=== PATIENT | female | born 1955 | race Caucasian/White ===

== ENCOUNTER 2017-11-04 02:10 | Inpatient (IN) | payer OTHER, MEDICARE ==
[~2017-11-04] VITALS: Ht 167.6 cm; Wt 61.6 kg
[2017-11-04] VITALS (10 sets, daily range): BP systolic 99–139; BP diastolic 56–68; PULSE 82–103; RESP 16–26; TEMP 96.7–97.9; O2SAT 94–100
[~2017-11-04 02:10] MED LIST: ACTE400I IV; DOCU1CAP39 PO; DOXY100T PO; FOLI1TAB PO; GABA400 PO; LEVO.05 PO; METH1INJ18 PO; PERC10TA27 PO; PRED5PAK PO; PROT40TA PO; VENL75 PO; ZOLP10TA3 PO
[2017-11-04] MEDS ORDERED: TOFA1TAB PO (02:44)
[2017-11-04] MEDS ORDERED: GABA800T PO (02:44)
[2017-11-04] MEDS ORDERED: LEVO50TA4 PO (02:44)
[2017-11-04] MEDS ORDERED: OXYC1TAB36 PO (02:44)
[2017-11-04] MEDS ORDERED: [UNRECOGNIZED DRUG - CODE] (02:44)
[2017-11-04] MEDS ORDERED: VENL75TA2 PO (02:44)
[2017-11-04] MEDS ORDERED: FOLI400T PO (02:44)
[2017-11-04] MEDS ORDERED: PRED5TAB PO (02:44)
[2017-11-04 03:04] LABS: AUTOMATED NEUTROPHIL # 4.1 TH/MM3 (1.8-7.7); BASOPHIL % 0.1 % (0.0-2.0); HEMATOCRIT 36.7 % (35.0-46.0); HEMOGLOBIN 12.3 GM/DL (11.6-15.3); LYMPH % 3.6 % (9.0-44.0); LYMPHOCYTE # 0.2 TH/MM3 (1.0-4.8); MEAN CELL VOLUME 105.3 FL (80.0-100.0); MEAN CORPUSCULAR HEMOGLOBIN 35.3 PG (27.0-34.0); MEAN CORPUSCULAR HGB CONC 33.5 % (32.0-36.0); MEAN PLATELET VOLUME 6.7 FL (7.0-11.0); MONO % 10.7 % (0.0-8.0); MONOCYTE # 0.5 TH/MM3 (0-0.9); NEUT % 85.6 % (16.0-70.0); PLATELET COUNT 391 TH/MM3 (150-450); RED BLOOD COUNT 3.49 MIL/MM3 (4.00-5.30); RED CELL DISTRIBUTION WIDTH 15.3 % (11.6-17.2); WHITE BLOOD COUNT 4.7 TH/MM3 (4.0-11.0)
--- NOTE | 2017-11-04 03:11 | RADRPT ---
EXAM DATE/TIME: 11/04/2017 02:43 [facility] COMPARISON: CHEST SINGLE AP, February 21, 2014, 4:41. INDICATIONS : Shortness of breath. MEDICAL HISTORY : None. SURGICAL HISTORY : None. ENCOUNTER: Initial ACUITY: 1 day PAIN SCORE: Non-responsive. LOCATION: Bilateral chest FINDINGS: There is a new consolidative infiltrate in the right lower lung without loss of delineation of the ri ght hemidiaphragm and obscuration of the right heart border, suggesting that this is a right middle l obe infiltrate. The left lung is clear. The heart is normal size. Bilateral shoulder arthroplasty. CONCLUSION: Right middle lobe consolidative infiltrate. Ambrose Richardson MD on November 04, 2017 at 3:08 Board Certified Radiologist. This report was verified electronically.
[2017-11-04 03:15] LABS: INTERNATIONAL NORMALIZED RATIO 1.1 RATIO; PROTHROMBIN TIME - PATIENT 11.1 SEC (9.8-11.6)
[2017-11-04 03:25] LABS: LACTIC ACID SEPSIS PROTOCOL 2.1 mmol/L (0.4-2.0)
[2017-11-04 03:33] LABS: ALBUMIN 3.1 GM/DL (3.4-5.0); AST (GOT) 58 U/L (15-37); BICARBONATE 18.3 MEQ/L (21.0-32.0); BLOOD UREA NITROGEN 39 MG/DL (7-18); CALCIUM 7.7 MG/DL (8.5-10.1); CHLORIDE 114 MEQ/L (98-107); CREATININE 2.45 MG/DL (0.50-1.00); GLOMERULAR FILTRATION RATE 20 ML/MIN (>89); GLUCOSE,RANDOM 128 MG/DL (74-106); SODIUM (NA) 141 MEQ/L (136-145)
[2017-11-04] MEDS ORDERED: VANCOMYCIN 1 GM/200 ML INJ 200 ML IV ONE (03:45)
[2017-11-04] MEDS ORDERED: PIPERACIL-TAZO 3.375 GM PREMIX 50 ML IV ONE (03:45)
[2017-11-04 03:47] LABS: ACETAMINOPHEN 4.7 MCG/ML (10.0-30.0); ALKALINE PHOSPHATASE 144 U/L (45-117); ALT (GPT) 25 U/L (10-53); TOTAL BILIRUBIN ADULT 0.3 MG/DL (0.2-1.0); TOTAL PROTEIN 6.2 GM/DL (6.4-8.2); TROPONIN I 0.03 NG/ML (0.02-0.05)
[2017-11-04] MEDS: SODIUM CHLORIDE 0.9% FLUSH 10 ML FLUSH IV FLUSH PRN ×2 (05:18→06:31)
[2017-11-04] MEDS ORDERED: SODIUM CHLOR 0.9% 1000 ML INJ 1,000 ML IV ONE (05:30)
[2017-11-04 06:14] LABS: BACTERIA, URINE OCC /hpf; BILIRUBIN, URINE NEG (NEG); BLOOD, URINE MOD (NEG); GLUCOSE,URINE NEG (NEG); HYALINE CAST, URINE 49 /lpf (RARE); KETONE, URINE TRACE mg/dL (NEG); MUCUS URINE FEW /lpf (OCC); NITRITE,URINE NEG (NEG); PH, URINE 5.5 (5.0-8.5); SQUAMOUS EPITHELIAL CELL URINE <1 /hpf (0-5); URINE COLOR YELLOW (YELLW/STRAW); URINE LEUKOCYTE ESTERASE NEG (NEG)
--- NOTE | 2017-11-04 06:40 | RADRPT ---
EXAM DATE/TIME: 11/04/2017 05:46 [facility] COMPARISON: No previous studies available for comparison. INDICATIONS : Shortness of breath. Evaluate for possible mass. RADIATION DOSE: 7.27 CTDIvol (mGy) MEDICAL HISTORY : Lupus. Renal failure. SURGICAL HISTORY : Bilateral shoulder replacments. ENCOUNTER: Initial ACUITY: 1 day PAIN SCALE: Non-responsive LOCATION: chest TECHNIQUE: Volumetric scanning of the chest was performed. Using automated exposure control and adjustment of t he mA and/or kV according to patient size, radiation dose was kept as low as reasonably achievable to obtain optimal diagnostic quality images. DICOM format image data is available electronically for r eview and comparison. Follow-up recommendations for detected pulmonary nodules are based at a minimum on nodule size and pa tient risk factors according to Fleischner Society Guidelines. FINDINGS: LUNGS: There is dense consolidation involving the entire right lower lobe without air bronchograms. There i s truncation of the lower lobe bronchus at its origin. Consolidation in the medial segment of the ri ght middle lobe with multiple air bronchograms. Patchy infiltrates in the left lower lung without ai r bronchograms. PLEURAE: There is no pleural thickening or pleural effusion. MEDIASTINUM: The heart and great vessels demonstrate no acute abnormality. There is no mediastinal or hilar lymph adenopathy. Coronary artery calcifications. AXILLAE: Within normal limits. No lymphadenopathy. Bilateral breast implants. MUSCULOSKELETAL: Within normal limits for patient age. MISCELLANEOUS: The visualized upper abdominal organs demonstrate no acute abnormality. CONCLUSION: 1. Consolidation of the entire right lower lobe with nonvisualization of the lower lobe bronchus at i ts origin suggesting an obstructing central lesion. 2. Segmental consolidation in the right middle lobe and patchy areas of infiltrate in the left lower lobe. 3. No evidence of mediastinal adenopathy. Ambrose Richardson MD on November 04, 2017 at 6:29 Board Certified Radiologist. This report was verified electronically.
--- NOTE | 2017-11-04 06:41 | RADRPT ---
EXAM DATE/TIME: 11/04/2017 05:49 [facility] COMPARISON: No previous studies available for comparison. INDICATIONS : Altered mental status. RADIATION DOSE: 56.35 CTDIvol (mGy) MEDICAL HISTORY : Lupus. Renal failure. SURGICAL HISTORY : None. ENCOUNTER: Initial ACUITY: 1 day PAIN SCALE: Non-responsive LOCATION: cranial TECHNIQUE: Multiple contiguous axial images were obtained of the head. Using automated exposure control and adj ustment of the mA and/or kV according to patient size, radiation dose was kept as low as reasonably a chievable to obtain optimal diagnostic quality images. DICOM format image data is available electro nically for review and comparison. FINDINGS: CEREBRUM: The ventricles are normal for age. No evidence of midline shift, mass lesion, hemorrhage or acute in farction. No extra-axial fluid collections are seen. POSTERIOR FOSSA: The cerebellum and brainstem are intact. The 4th ventricle is midline. The cerebellopontine angle i s unremarkable. EXTRACRANIAL: Soft tissue density in the inferolateral right maxillary sinus measuring 2 cm with smooth margins. T he visualized portion of the orbits is intact. SKULL: The calvaria is intact. No evidence of skull fracture. CONCLUSION: 1. No acute findings in the brain on this noncontrast study. 2. Right maxillary sinus disease. Ambrose Richardson MD on November 04, 2017 at 6:39 Board Certified Radiologist. This report was verified electronically.
--- NOTE | 2017-11-04 06:42 | PD ---
HPI . Altered mental status Chief Complaint: OD/ Ingestion Time Seen by Provider: 02:29 Travel History International Travel<30 days: No Contact w/Intl Traveler<30days: No Traveled to known affect area: No History of Present Illness HPI 62-year-old female with a known history of recurrent back injuries, rheumatoid arthritis, lupus, on opiate pain medications at home, presents via EMS with report of patient having shallow respirations at the house, patient's significant other called police/EMS. Narcan administered in the field with patient arousing becoming awake and alert. Patient presents answering questions appropriately awake and alert, unaware of her potential overdose. Patient was noted to have tachypnea and rhonchi lung car[place]allo right worse than left by EMS en route. Patient is an unreliable historian [facility] Past Medical History Narrative Medical Past medical history reviewed Arthritis: Yes (rheumatoid arthritis severe ) Autoimmune Disease: Yes Blood Disorders: Yes (bleed/bruise from prednisone) Anxiety: Yes (anxiety) Depression: Yes Cancer: No Cardiovascular Problems: No Diabetes: No Diminished Hearing: No Endocrine: Yes Gout: Yes Genitourinary: Yes Immune Disorder: Yes (LUPUS RA, avscular necrosis, pandeculitis ) Implanted Vascular Access Dvce: Yes Musculoskeletal: Yes (CHRONIC BACK PAIN , OSTEOPOROSIS) Neurologic: Yes Psychiatric: Yes Reproductive: No Respiratory: No Immunizations Current: Yes Migraines: Yes (rare) Renal Failure: Yes (nodules on kidney - benign) Thyroid Disease: Yes (hypothyroid ) Menopausal: Yes Past Surgical History Abdominal Surgery: Yes (gallbladder '89) Cholecystectomy: Yes (87) Eye Surgery: Yes (lasix vision) Gynecologic Surgery: No Joint Replacement: Yes (bilateral shoulders x 2, femur plates screws ) Pacemaker: No Other Surgery: Yes (BREAST AUGMENTATION) Social History Alcohol Use: Yes (1 glass of wine daily ) Tobacco Use: Yes ("sometimes" per pt) Substance Use: No Allergies-Medications (Allergen,Severity, Reaction): Coded Allergies: Sulfa (Sulfonamide Antibiotics) (Unverified Allergy, Severe, Trouble breathing, 05/25/17) acetaminophen (Unverified Allergy, Severe, respiratory ,rash, 05/25/17) amitriptyline (Unverified Allergy, Severe, respiratory, 05/25/17) aspirin (Unverified Allergy, Severe, respiratory, 05/25/17) carisoprodol (Unverified Allergy, Severe, respiratory, 05/25/17) chlorzoxazone (Unverified Allergy, Severe, confused, 05/25/17) cyclobenzaprine (Unverified Allergy, Severe, respiratory, 05/25/17) diclofenac (Unverified Allergy, Severe, respiratory, 05/25/17) eszopiclone (Unverified Allergy, Severe, respiratory, 05/25/17) etodolac (Unverified Allergy, Severe, respiratory, 05/25/17) flurbiprofen (Unverified Allergy, Severe, respiratory, 05/25/17) hydromorphone (Unverified Allergy, Severe, respiratory arrest, 05/25/17) ibuprofen (Unverified Allergy, Severe, respiratory, 05/25/17) indomethacin (Unverified Allergy, Severe, respiratory, 05/25/17) ketoprofen (Unverified Allergy, Severe, respiratory, 05/25/17) ketorolac (Unverified Allergy, Severe, respiratory, 05/25/17) naproxen (Unverified Allergy, Severe, respiratory, 05/25/17) oxaprozin (Unverified Allergy, Severe, respiratory, 05/25/17) tramadol (Unverified Allergy, Severe, respiratory ,rash, 05/25/17) almond (Unverified Allergy, Unknown, 05/25/17) bee venom protein (honey bee) (Unverified Allergy, Unknown, 05/25/17) *MDRO Multi-Drug Resistant Organism (Verified Adverse Reaction, Unknown, ) MRSA wound (leg) 06/21/2015 Uncoded Allergies: MUSCLE RELAXERS (Adverse Reaction, Unknown, 06/29/16) Reported Meds & Prescriptions Reported Meds & Active Scripts Active Reported Xeljanz Xr (Tofacitinib ER) 11 Mg Tab 11 Mg PO DAILY Levothyroxine (Levothyroxine Sodium) 50 Mcg Tab 50 Mcg PO DAILY Folic Acid 0.4 Mg Tab 1 Mg PO DAILY Venlafaxine ER 24 HR (Venlafaxine HCl) 75 Mg Tab 75 Mg PO DAILY Prednisone 5 Mg Tab 5 Mg PO DAILY Gabapentin 800 Mg Tab 800 Mg PO TID Oxycodone-Acetaminophen 10-325 mg Tab 1 Tab PO Q6H PRN Rasuvo (Methotrexate (Antirheumatic)) 25 Mg/0.5 Ml Inj WEEKLY Narrative Medication Extensive allergy list and medications reviewed Review of Systems ROS Limitations: Altered Mental Status, Poor Historian Physical Exam Exam Limitations: Altered Mental Status, Poor Historian Narrative GENERAL: Awake and altered, tachypnea neck, slightly tachycardic at 105 SKIN: Warm and dry. Color is normal no diaphoresis cyanosis or pallor HEAD: Atraumatic. Normocephalic. EYES: Pupils equal and round. No scleral icterus. No injection or drainage. ENT: No nasal bleeding or discharge. Mucous membranes pink and moist. NECK: Trachea midline. No JVD. Supple nontender CARDIOVASCULAR: Regular rate and rhythm. S1 and S2 RESPIRATORY: Slight tachypnea with rhonchi heard right versus left, decreased lung sounds right base posteriorly GASTROINTESTINAL: Abdomen soft, non-tender, nondistended. Hepatic and splenic margins not palpable. MUSCULOSKELETAL: Extremities without clubbing, cyanosis, or edema. No obvious deformities. NEUROLOGICAL: Awake and alert. No obvious focal deficits, difficult exam. PSYCHIATRIC: Poor historian, difficult exam Data Data Last Documented VS Vital Signs Date Time Temp Pulse Resp B/P (MAP) Pulse Ox O2 Delivery O2 Flow Rate FiO2 11/04/17 02:32 97.9 102 18 99/56 (70) 96 Non-Rebreather Orders Orders Electrocardiogram (11/04/17 02:29) Ammonia (11/04/17 02:29) Complete Blood Count With Diff (11/04/17 02:29) Comprehensive Metabolic Panel (11/04/17 02:29) Creatine Kinase (Cpk) (11/04/17 02:29) Prothrombin Time / Inr (Pt) (11/04/17 02:29) Act Partial Throm Time (Ptt) (11/04/17 02:29) Troponin I (11/04/17 02:29) Thyroid Stimulating Hormone (11/04/17 02:29) Urinalysis - C+S If Indicated (11/04/17 02:29) Lactic Acid Sepsis Protocol (11/04/17 02:29) Blood Culture (11/04/17 02:29) Chest, Single Ap (11/04/17 02:29) Blood Glucose (11/04/17 02:29) Ecg Monitoring (11/04/17 02:29) Iv Access Insert/Monitor (11/04/17 02:29) Oximetry (11/04/17 02:29) Sodium Chloride 0.9% Flush (Ns Flush) (11/04/17 02:30) Drug Screen, Random Urine (11/04/17 02:29) Salicylates (Aspirin) (11/04/17 02:29) Tylenol (Acetaminophen) (11/04/17 02:44) Alcohol (Ethanol) (11/04/17 02:44) Piperacil-Tazo 3.375 Gm Premix (Zosyn 3. (11/04/17 03:45) Vancomycin Inj (Vancomycin Inj) (11/04/17 03:45) CKMB (11/04/17 02:44) CKMB% (11/04/17 02:44) Sodium Chlor 0.9% 1000 Ml Inj (Ns 1000 M (11/04/17 05:30) Ct Thorax/ Chest Wo Iv Contras (11/04/17 ) Ct Brain W/O Iv Contrast(Rout) (11/04/17 ) Urine Culture (11/04/17 05:43) Labs Laboratory Tests Test 11/04/17 02:44 11/04/17 05:43 White Blood Count 4.7 TH/MM3 Red Blood Count 3.49 MIL/MM3 Hemoglobin 12.3 GM/DL Hematocrit 36.7 % Mean Corpuscular Volume 105.3 FL Mean Corpuscular Hemoglobin 35.3 PG Mean Corpuscular Hemoglobin Concent 33.5 % Red Cell Distribution Width 15.3 % Platelet Count 391 TH/MM3 Mean Platelet Volume 6.7 FL Neutrophils (%) (Auto) 85.6 % Lymphocytes (%) (Auto) 3.6 % Monocytes (%) (Auto) 10.7 % Eosinophils (%) (Auto) 0.0 % Basophils (%) (Auto) 0.1 % Neutrophils # (Auto) 4.1 TH/MM3 Lymphocytes # (Auto) 0.2 TH/MM3 Monocytes # (Auto) 0.5 TH/MM3 Eosinophils # (Auto) 0.0 TH/MM3 Basophils # (Auto) 0.0 TH/MM3 CBC Comment DIFF FINAL Differential Comment Prothrombin Time 11.1 SEC Prothromb Time International Ratio 1.1 RATIO Activated Partial Thromboplast Time 24.4 SEC Blood Urea Nitrogen 39 MG/DL Creatinine 2.45 MG/DL Random Glucose 128 MG/DL Total Protein 6.2 GM/DL Albumin 3.1 GM/DL Calcium Level 7.7 MG/DL Alkaline Phosphatase 144 U/L Aspartate Amino Transf (AST/SGOT) 58 U/L Alanine Aminotransferase (ALT/SGPT) 25 U/L Total Bilirubin 0.3 MG/DL Sodium Level 141 MEQ/L Potassium Level 3.6 MEQ/L Chloride Level 114 MEQ/L Carbon Dioxide Level 18.3 MEQ/L Anion Gap 9 MEQ/L Estimat Glomerular Filtration Rate 20 ML/MIN Lactic Acid Level 2.1 mmol/L Ammonia 12 MCMOL/L Total Creatine Kinase 1051 U/L Creatine Kinase MB 21.5 NG/ML Creatine Kinase MB % 2.0 % Troponin I 0.03 NG/ML Thyroid Stimulating Hormone 3rd Gen 0.331 uIU/ML Salicylates Level LESS THAN 1.7 MG/DL Acetaminophen Level 4.7 MCG/ML Ethyl Alcohol Level LESS THAN 3 MG/DL Urine Color YELLOW Urine Turbidity HAZY Urine pH 5.5 Urine Specific [place] 1.018 Urine Protein 30 mg/dL Urine Glucose (UA) NEG mg/dL Urine Ketones TRACE mg/dL Urine Occult Blood MOD Urine Nitrite NEG Urine Bilirubin NEG Urine Urobilinogen LESS THAN 2.0 MG/DL Urine Leukocyte Esterase NEG Urine RBC 2 /hpf Urine WBC 4 /hpf Urine Squamous Epithelial Cells <1 /hpf Urine Bacteria OCC /hpf Urine Hyaline Casts 49 /lpf Urine Mucus FEW /lpf Microscopic Urinalysis Comment CATH-CULTURE IND Urine Opiates Screen NEG Urine Barbiturates Screen NEG Urine Amphetamines Screen NEG Urine Benzodiazepines Screen POS Urine Cocaine Screen NEG Urine Cannabinoids Screen NEG MDM Medical Decision Making Medical Screen Exam Complete: Yes Emergency Medical Condition: Yes Medical Record Reviewed: Yes Differential Diagnosis Opiate overdose, aspiration pneumonia, altered mental status Narrative Course Chest x-ray reviewed, right hilar infiltrate noted. Possible dense consolidation hilar versus base on chest x-ray CT thorax: Right middle lobe pneumonia as seen on chest x-ray, dense consolidation versus collapsed lung versus mass right lower lobe in its entirety. Discussed with radiology Patient worked up for possible sepsis, given broad-spectrum antibiotics at presentation. Case discussed with hospitalist service, to be admitted Post CT thorax results reviewed, recommend bronchoscopy on this admission Diagnosis Primary Impression: Aspiration pneumonia Qualified Codes: J69.0 - Pneumonitis due to inhalation of food and vomit Additional Impression: Overdose Qualified Codes: T50.904A - Poisoning by unspecified drugs, medicaments and biological substances, undetermined, initial encounter Admitting Information Admitting Physician Requests: Admit Herrera Joseph MD Nov 04, 2017 06:42
[2017-11-04] MEDS ORDERED: ONDANSETRON HCL 4 MG/2 ML VIAL IV PUSH PRN (07:00)
[2017-11-04] MEDS ORDERED: SODIUM CHLORIDE 0.9% FLUSH 10 ML FLUSH IV FLUSH PRN (07:00)
[2017-11-04] MEDS ORDERED: Vancomycin Consult Pharmacy 1 EA OTHER SCH (07:00)
[2017-11-04] MEDS ORDERED: NALOXONE HCL 0.4 MG/ML AMP IV PUSH PRN (07:00)
[2017-11-04] MEDS ORDERED: ACETAMINOPHEN 325 MG TAB PO PRN (07:00)
[2017-11-04] MEDS: SODIUM CHLOR 0.9% 1000 ML INJ 1,000 ML IV SCH ×2 (07:44→22:06)
[2017-11-04] MEDS ORDERED: VANCOMYCIN 1 GM/200 ML PREMIX IV ONE (09:00)
[2017-11-04] MEDS: SODIUM CHLORIDE 0.9% FLUSH 10 ML FLUSH IV FLUSH SCH ×2 (09:00→21:00)
[2017-11-04] MEDS ORDERED: PIPERACIL-TAZO 4.5 GM PREMIX 100 ML IV SCH (10:00)
[2017-11-04] MEDS ORDERED: VANCOMYCIN INJ 1,000 MG in SODIUM CHLOR 0.9% 250 ML INJ 250 ML IV ONE (16:00)
[2017-11-04] MEDS: PIPERACIL-TAZO 3.375 GM PREMIX 50 ML IV SCH ×2 (17:25→23:49)
--- NOTE | 2017-11-04 17:57 | HHI.HP ---
[facility] Roberth Reza MD Admission Diagnosis Pneumonia, R lower Bronchus Obstruction Diagnoses: Travel History International Travel<30 Days: No Contact w/Intl Traveler <30 Da: No Traveled to Known Affected Are: No History of Present Illness Mrs. Eugene is a 62-year-old female. At baseline she has rheumatoid arthritis and lupus and takes immunosuppressant. Recently she had been dealing with influenza and she says she's been ill from this and spending a lot of time in bed. She feels she's been in bed about 3 days but has difficulty recollecting the past few days. Her boyfriend called EMS and brought her to the emergency Department secondary to the degree of lethargy. Patient is on opioids that she denies ever using this other than what is prescribed and she says recently she has not been taking her opioids. Urine drug screen shows no evidence of opioids in her system. Etiology for her lethargy could be related to infection. Imaging shows evidence of bilateral pneumonia with possible pulmonary obstruction on the right lower lobe. She's been started on Zosyn. She may also had a seizure this could alter her mental status. However, currently no seizure activity witnessed. CT of brain is negative for any evidence of bleed or CVA. An ABG is pending. Review of Systems ROS Limitations: Altered Mental Status, Poor Historian Respiratory: COMPLAINS OF: Cough, Shortness of breath, DENIES: Apneas, Wheezing Cardiovascular: DENIES: Chest pain, Palpitations, Syncope Gastrointestinal: DENIES: Abdominal pain, Black stools, Bloody stools Past Family Social History Past Medical History Rheumatoid arthritis Lupus Avascular necrosis Osteoporosis Chronic Back Pain Hypothyroidism History of Kidney Nodule Past Surgical History Cholecystectomy Basic eye surgery Breast augmentation history Bilateral shoulder surgeries Repaired femur fracture Reported Medications Reported Meds & Active Scripts Active Reported Xeljanz Xr (Tofacitinib ER) 11 Mg Tab 11 Mg PO DAILY Levothyroxine (Levothyroxine Sodium) 50 Mcg Tab 50 Mcg PO DAILY Folic Acid 0.4 Mg Tab 1 Mg PO DAILY Venlafaxine ER 24 HR (Venlafaxine HCl) 75 Mg Tab 75 Mg PO DAILY Prednisone 5 Mg Tab 5 Mg PO DAILY Gabapentin 800 Mg Tab 800 Mg PO TID Oxycodone-Acetaminophen 10-325 mg Tab 1 Tab PO Q6H PRN Rasuvo (Methotrexate (Antirheumatic)) 25 Mg/0.5 Ml Inj WEEKLY Allergies: Coded Allergies: Sulfa (Sulfonamide Antibiotics) (Unverified Allergy, Severe, Trouble breathing, 05/25/17) acetaminophen (Unverified Allergy, Severe, respiratory ,rash, 05/25/17) amitriptyline (Unverified Allergy, Severe, respiratory, 05/25/17) aspirin (Unverified Allergy, Severe, respiratory, 05/25/17) carisoprodol (Unverified Allergy, Severe, respiratory, 05/25/17) chlorzoxazone (Unverified Allergy, Severe, confused, 05/25/17) cyclobenzaprine (Unverified Allergy, Severe, respiratory, 05/25/17) diclofenac (Unverified Allergy, Severe, respiratory, 05/25/17) eszopiclone (Unverified Allergy, Severe, respiratory, 05/25/17) etodolac (Unverified Allergy, Severe, respiratory, 05/25/17) flurbiprofen (Unverified Allergy, Severe, respiratory, 05/25/17) hydromorphone (Unverified Allergy, Severe, respiratory arrest, 05/25/17) ibuprofen (Unverified Allergy, Severe, respiratory, 05/25/17) indomethacin (Unverified Allergy, Severe, respiratory, 05/25/17) ketoprofen (Unverified Allergy, Severe, respiratory, 05/25/17) ketorolac (Unverified Allergy, Severe, respiratory, 05/25/17) naproxen (Unverified Allergy, Severe, respiratory, 05/25/17) oxaprozin (Unverified Allergy, Severe, respiratory, 05/25/17) tramadol (Unverified Allergy, Severe, respiratory ,rash, 05/25/17) almond (Unverified Allergy, Unknown, 05/25/17) bee venom protein (honey bee) (Unverified Allergy, Unknown, 05/25/17) *MDRO Multi-Drug Resistant Organism (Verified Adverse Reaction, Unknown, ) MRSA wound (leg) 06/21/2015 Uncoded Allergies: MUSCLE RELAXERS (Adverse Reaction, Unknown, 06/29/16) Active Ordered Medications Administered Medications Medications (Trade) Dose Ordered Sig/Duglas Route PRN Reason Start Time Stop Time Status Last Admin Dose Admin Sodium Chloride (NS Flush) 2 ml UNSCH PRN IV FLUSH FLUSH AFTER USING IV ACCESS 11/04/17 02:30 11/04/17 06:31 Sodium Chloride 1,000 ml @ 70 mls/hr [id number] IV 11/04/17 06:49 11/04/17 07:44 Piperacillin Sod/ Tazobactam Sod 50 ml @ 100 mls/hr Q6H IV 11/04/17 16:00 11/04/17 17:25 Family History Unable to obtain due to altered mental status Social History Occasional alcohol Occasional nicotine Patient denies illicit drug abuse Physical Exam Vital Signs Vital Signs Date Time Temp Pulse Resp B/P (MAP) Pulse Ox O2 Delivery O2 Flow Rate FiO2 11/04/17 16:00 97.7 82 17 139/68 (91) 94 11/04/17 15:15 95 16 122/65 (84) 96 Nasal Cannula 2.00 11/04/17 15:10 11/04/17 12:13 97 16 112/63 (79) 97 Nasal Cannula 6.00 11/04/17 10:00 98 16 102/61 (75) 97 Nasal Cannula 6.00 11/04/17 08:36 94 Nasal Cannula 6.00 11/04/17 07:45 103 18 111/58 (75) 95 Nasal Cannula 6.00 11/04/17 02:32 97.9 102 18 99/56 (70) 96 Non-Rebreather 11/04/17 02:29 100 Non-Rebreather 11/04/17 02:22 101 18 99/56 (70) 100 Physical Exam GENERAL: NAD, A&Ox2, lethargic HEAD: Normocephalic. NECK: Supple, trachea midline. No lymphadenopathy. EYES: No scleral icterus. No injection or drainage. CARDIOVASCULAR: Regular rate and rhythm without murmurs, gallops, or rubs. RESPIRATORY: Breath sounds equal bilaterally. No accessory muscle use. GASTROINTESTINAL: Abdomen soft, non-tender, nondistended. MUSCULOSKELETAL: No cyanosis, or edema. SKIN: Warm and dry. Bilateral shoulder scars. Grade 1 ulceration/expiration at right buttock. NEURO: No focal neurological deficitis. Laboratory Laboratory Tests Test 11/04/17 02:44 11/04/17 05:43 11/04/17 06:37 White Blood Count 4.7 Red Blood Count 3.49 Hemoglobin 12.3 Hematocrit 36.7 Mean Corpuscular Volume 105.3 Mean Corpuscular Hemoglobin 35.3 Mean Corpuscular Hemoglobin Concent 33.5 Red Cell Distribution Width 15.3 Platelet Count 391 Mean Platelet Volume 6.7 Neutrophils (%) (Auto) 85.6 Lymphocytes (%) (Auto) 3.6 Monocytes (%) (Auto) 10.7 Eosinophils (%) (Auto) 0.0 Basophils (%) (Auto) 0.1 Neutrophils # (Auto) 4.1 Lymphocytes # (Auto) 0.2 Monocytes # (Auto) 0.5 Eosinophils # (Auto) 0.0 Basophils # (Auto) 0.0 CBC Comment DIFF FINAL Differential Comment Prothrombin Time 11.1 Prothromb Time International Ratio 1.1 Activated Partial Thromboplast Time 24.4 Blood Urea Nitrogen 39 Creatinine 2.45 Random Glucose 128 Total Protein 6.2 Albumin 3.1 Calcium Level 7.7 Alkaline Phosphatase 144 Aspartate Amino Transf (AST/SGOT) 58 Alanine Aminotransferase (ALT/SGPT) 25 Total Bilirubin 0.3 Sodium Level 141 Potassium Level 3.6 Chloride Level 114 Carbon Dioxide Level 18.3 Anion Gap 9 Estimat Glomerular Filtration Rate 20 Lactic Acid Level 2.1 1.6 Ammonia 12 Total Creatine Kinase 1051 Creatine Kinase MB 21.5 Creatine Kinase MB % 2.0 Troponin I 0.03 Thyroid Stimulating Hormone 3rd Gen 0.331 Salicylates Level LESS THAN 1.7 Acetaminophen Level 4.7 Ethyl Alcohol Level LESS THAN 3 Urine Color YELLOW Urine Turbidity HAZY Urine pH 5.5 Urine Specific Boyd 1.018 Urine Protein 30 Urine Glucose (UA) NEG Urine Ketones TRACE Urine Occult Blood MOD Urine Nitrite NEG Urine Bilirubin NEG Urine Urobilinogen LESS THAN 2.0 Urine Leukocyte Esterase NEG Urine RBC 2 Urine WBC 4 Urine Squamous Epithelial Cells <1 Urine Bacteria OCC Urine Hyaline Casts 49 Urine Mucus FEW Microscopic Urinalysis Comment CATH-CULTURE IND Urine Opiates Screen NEG Urine Barbiturates Screen NEG Urine Amphetamines Screen NEG Urine Benzodiazepines Screen POS Urine Cocaine Screen NEG Urine Cannabinoids Screen NEG Date/Time Source Procedure Growth Status 11/04/17 02:45 Blood Peripheral Aerobic Blood Culture Pending Received 11/04/17 02:45 Blood Peripheral Anaerobic Blood Culture Pending Received 11/04/17 05:43 Urine Catheterized Urine Urine Culture Pending Received Result Diagram: 11/04/17 0244 11/04/17 0244 Septic Shock Reassessment Septic shock perfusion: reassessment completed Caprini VTE Risk Assessment Caprini VTE Risk Assessment: Mod/High Risk (score >= 2) Caprini Risk Assessment Model Point Value = 1 Point Value = 2 Point Value = 3 Point Value = 5 Age 41-60 Minor surgery BMI > 25 kg/m2 Swollen legs Varicose veins or History of unexplained or recurrent spontaneous Oral contraceptives or hormone replacement Sepsis (< 1 month) Serious lung disease, including pneumonia (< 1 month) Abnormal pulmonary function Acute myocardial infarction Congestive heart failure (< 1 month) History of inflammatory bowel disease Medical patient at bed rest Age 61-74 Arthroscopic surgery Major open surgery (> 45 min) Laparoscopic surgery (> 45 min) Malignancy Confined to bed (> 72 hours) Immobilizing plaster cast Central venous access Age >= 75 History of VTE Family history of VTE Factor V Leiden Prothrombin [id number] Lupus anticoagulant Anticardiolipin antibodies Elevated serum homocysteine Heparin-induced thrombocytopenia Other congenital or acquired thrombophilia Stroke (< 1 month) Elective arthroplasty Hip, pelvis, or leg fracture Acute spinal cord injury (< 1 month) Prophylaxis Regimen Total Risk Factor Score Risk Level Prophylaxis Regimen 0-1 Low Early ambulation 2 Moderate Order ONE of the following: *Sequential Compression Device (SCD) *Heparin 5000 units SQ BID 3-4 Higher Order ONE of the following medications: *Heparin 5000 units SQ TID *Enoxaparin/Lovenox 40 mg SQ daily (WT < 150 kg, CrCl > 30 mL/min) *Enoxaparin/Lovenox 30 mg SQ daily (WT < 150 kg, CrCl > 10-29 mL/min) *Enoxaparin/Lovenox 30 mg SQ BID (WT < 150 kg, CrCl > 30 mL/min) AND/OR *Sequential Compression Device (SCD) 5 or more Highest Order ONE of the following medications: *Heparin 5000 units SQ TID (Preferred with Epidurals) *Enoxaparin/Lovenox 40 mg SQ daily (WT < 150 kg, CrCl > 30 mL/min) *Enoxaparin/Lovenox 30 mg SQ daily (WT < 150 kg, CrCl > 10-29 mL/min) *Enoxaparin/Lovenox 30 mg SQ BID (WT < 150 kg, CrCl > 30 mL/min) AND *Sequential Compression Device (SCD) Assessment and Plan Problem List: (1) Bilateral pneumonia ICD Code: J18.9 - Pneumonia, unspecified organism (2) Bronchial obstruction ICD Code: J98.09 - Other diseases of bronchus, not elsewhere classified (3) Rheumatoid arthritis ICD Code: M06.9 - Rheumatoid arthritis Status: Acute (4) Immunosuppression ICD Code: D89.9 - Immunosuppression Status: Acute (5) Encephalopathy ICD Code: G93.40 - Encephalopathy Status: Acute Assessment and Plan 62-year-old female admitted secondary to encephalopathy with findings of bilateral pneumonia and right-sided bronchial obstruction. Bilateral pneumonia Continue Zosyn Azithromycin started Continue oxygen support Check ABG May be contributory to encephalopathy Right-sided bronchial obstruction Pulmonology consulted Check ABG Oxygen support Encephalopathy Toxic (narcotics or benzodiazepines) versus metabolic (secondary to infection) Treat infection as above Check ABG Avoid narcotics and benzodiazepine Nothing by mouth for now until alertness improves Seizures and alternate etiology Anxiety/depression Holding benzodiazepine Continue treatments Gout No exacerbation Rheumatoid arthritis Lupus Avascular necrosis Chronic back pain Immunocompromise related to treatment No change to treatments for now Follow for exacerbation signs Hypothyroidism history TSH is low, but may be reactive Repeat TSH with T3 and T4 in a.m. Physician Certification 2 Midnight Certification Type: Admission for Inpatient Services Order for Inpatient Services The services are ordered in accordance with Medicare regulations or non- Medicare payer requirements, as applicable. In the case of services not specified as inpatient-only, they are appropriately provided as inpatient services in accordance with the 2-midnight benchmark. Estimated LOS (days): 3 days is the estimated time the patient will need to remain in the hospital, assuming treatment plan goals are met and no additional complications. Post-Hospital Plan: Home Ga Carrasco MD Nov 04, 2017 17:57
[2017-11-04] MEDS: ENOXAPARIN SODIUM 40 MG/0.4 ML SYRINGE SQ SCH ×2 (18:00→19:30)
[2017-11-04] MEDS ORDERED: RESP: ALBUTEROL CONC 2.5 MG/0.5 ML NEB NEB SCH (19:45)
[2017-11-04] MEDS: AZITHROMYCIN INJ 500 MG in SODIUM CHLOR 0.9% 250 ML INJ 250 ML IV SCH (22:06)
[2017-11-04 22:18] LABS: INTERNATIONAL NORMALIZED RATIO 1.2 RATIO; PROTHROMBIN TIME - PATIENT 12.5 SEC (9.8-11.6)
--- NOTE | 2017-11-04 23:36 | EKG ---
Date Performed: 11/04/2017 Time Performed: 02:21:14 PTAGE: 62 years EKG: SINUS TACHYCARDIA ABNORMAL RHYTHM ECG WARNING: DATA QUALITY MAY AFFECT INTERPRETATION PREVIOUS TRACING : 02/15/2014 00.18 Compared to prior tracing, rate has increased DOCTOR: Baldomero Torres Interpretating Date/Time 11/04/2017 23:35:28
[2017-11-04] MEDS: methylPREDNISolone SOD SUCC 40 MG/1 ML VIAL IV PUSH SCH (23:49)
[2017-11-05] VITALS (10 sets, daily range): BP systolic 81–116; BP diastolic 48–59; PULSE 81–104; RESP 16–22; TEMP 96.8–101.5; O2SAT 97–99
[2017-11-05] MEDS: RESP: ACETYLCYSTEINE 10% 30 ML NEB NEB SCH ×3 (03:49→19:39)
[2017-11-05] MEDS: RESP: ALBUTEROL 2.5 MG/IPRATROPIUM 0.5 MG NEB (PRN) INH (03:49)
[2017-11-05] MEDS: methylPREDNISolone SOD SUCC 40 MG/1 ML VIAL IV PUSH SCH ×4 (05:07→23:22)
[2017-11-05] MEDS: PIPERACIL-TAZO 3.375 GM PREMIX 50 ML IV SCH ×4 (05:07→20:51)
[2017-11-05 07:31] LABS: BASOPHIL % 0.1 % (0.0-2.0); HEMATOCRIT 31.4 % (35.0-46.0); HEMOGLOBIN 10.8 GM/DL (11.6-15.3); LYMPH % 1.4 % (9.0-44.0); LYMPHOCYTE # 0.2 TH/MM3 (1.0-4.8); MEAN CELL VOLUME 103.1 FL (80.0-100.0); MEAN CORPUSCULAR HEMOGLOBIN 35.4 PG (27.0-34.0); MEAN CORPUSCULAR HGB CONC 34.4 % (32.0-36.0); MEAN PLATELET VOLUME 7.1 FL (7.0-11.0); MONOCYTE # 0.2 TH/MM3 (0-0.9); NEUT % 96.5 % (16.0-70.0); PLATELET COUNT 259 TH/MM3 (150-450); RED BLOOD COUNT 3.05 MIL/MM3 (4.00-5.30); RED CELL DISTRIBUTION WIDTH 15.2 % (11.6-17.2); WHITE BLOOD COUNT 11.4 TH/MM3 (4.0-11.0)
[2017-11-05] MEDS: RESP: ALBUTEROL 2.5 MG/IPRATROPIUM 0.5 MG NEB (SCH) NEB ×4 (07:42→19:38)
[2017-11-05 08:52] LABS: BICARBONATE 19.9 MEQ/L (21.0-32.0); BLOOD UREA NITROGEN 22 MG/DL (7-18); CALCIUM 7.7 MG/DL (8.5-10.1); CHLORIDE 110 MEQ/L (98-107); CREATININE 0.65 MG/DL (0.50-1.00); FREE T3 LESS THAN 0.50 PG/ML (2.18-3.98); GLOMERULAR FILTRATION RATE 93 ML/MIN (>89); GLUCOSE,RANDOM 173 MG/DL (74-106); SODIUM (NA) 139 MEQ/L (136-145); THYROXINE (T4) 5.8 MCG/DL (4.8-13.9)
[2017-11-05] MEDS ORDERED: POTASSIUM CHLORIDE 20 MEQ PWD PACKET PO ONE ×2 (09:15→17:15)
[2017-11-05] MEDS: SODIUM CHLORIDE 0.9% FLUSH 10 ML FLUSH IV FLUSH SCH ×2 (09:21→20:08)
--- NOTE | 2017-11-05 11:01 | MB ---
cc: STEFANIE CASTELLANOS DATE OF CONSULTATION 11/04/2017 REASON FOR CONSULTATION Atelectasis and the right lower lobe infiltrate with possible bronchial obstruction. HISTORY OF PRESENT ILLNESS This is a 52-year-old lady with a longstanding history of rheumatoid arthritis, systemic lupus who has been on immunosuppressant therapy. She was sick with the flu and has been taking little orally and became quite short of breath and was using opioids and thus became quite lethargic and was brought to the emergency room for evaluation. The patient was unable to respond appropriately due to altered mental status and was suspected to have sepsis with bilateral pneumonia and was started on IV antibiotic therapy and admitted. The patient had a CT of the brain and subsequently a CT of the chest. His CT brain was negative for any acute disease. The chest CT demonstrated a dense right lower lobe infiltrate valve with a possible bronchial obstruction. PAST HISTORY 1. History of rheumatoid arthritis 2. Systemic lupus 3. History of the avascular necrosis of the hip. 4. History of chronic back pain with disk disease. 5. The patient also has had a history of hypothyroidism and kidney nodule. PAST SURGICAL HISTORY Surgery includes: 1. Cholecystectomy 2. Breast augmentation surgery 3. Bilateral shoulder repair 4. History for femoral fracture with repair. 5. Eye surgery MEDICATIONS Med list included: 1. Prednisone 5 mg daily 2. Gabapentin 800 mg t.i.d. 3. Levothyroxine 50 mcg a day 4. Xeljanz XR 11 mg daily ALLERGIES SULFA, ASPIRIN, AMITRIPTYLINE, DICLOFENAC, ETODOLAC, IBUPROFEN, TRAMADOL, BEE VENOM, HYDROMORPHONE, CARISOPRODOL. FAMILY HISTORY Noncontributory HABITS The patient smoked two to three cigarettes weekly and occasional alcohol use. SYSTEMS REVIEW The patient has lost weight. She has wheezing, cough, chest congestion, epigastric distress and reflux. She has no urinary symptoms. She has multiple joint pains and back pain and she has no leg or calf muscle pains. He has some anxiety and depression. PHYSICAL EXAMINATION This thinly built middle-aged white female who is alert and pale in no acute distress. VITAL SIGNS: Blood pressure 110/60, pulse is 85, respirations 22, temperature 97.5. HEENT: Head normocephalic. Pupils reactive and equal. Tongue is moist. Throat is mildly injected. Ears have no inflammation. NECK: No bruits or thyroid enlargement or lymphadenopathy. CHEST: Equal movements with distant breath sounds. Wheezes throughout both lung caraballo and breath sounds markedly diminished over the right lower chest. No crackles on either side with scattered wheezes heard. HEART: The heart sounds are irregular S1-S2. No murmur. No S3. ABDOMEN: Soft and benign. No masses or organomegaly. EXTREMITIES: No lesions or edema. Normal reflexes. No lesions or edema. Reflexes 1+. The patient does have multiple joint deformities of the extremities. NEUROLOGIC: No focal deficits identified. The patient is alert and talking appropriately and is responsive and cooperative. IMPRESSION 1. Right lower lobe atelectasis with pneumonia and possible obstructive pneumonitis. 2. History of rheumatoid arthritis. 3. Sepsis resolving 4. Systemic lupus 5. Probable obstructive airways disease. PLAN The patient will be continued on antibiotic coverage which included Zosyn 3.375 grams q. six. We will also place her on O2 at 3 liters nasal cannula and maintain sats above 192, nebulized DuoNeb solution added q.6 h and the patient will be placed on Mucomyst solution as a nebulizer 10% solution q.6. Coagulation profile to be done. Lovenox will be placed on hold. The patient was advised that a bronchoscopy will be planned to evaluate the right lower lobe for any bronchial obstruction. The patient also will be continued on IV Solu-Medrol 40 mg every 8 hours. A bronchoscopy procedure and risks were discussed. The patient, at the present time, has declined to have the procedure done. I will review her case again if she has agreed, we will proceed with bronchoscopy. Thank you for this consultation. MD DIEUDONNE Sy/NANETTE /11:48 PM /10:17 AM
[2017-11-05] MEDS: SODIUM CHLOR 0.9% 1000 ML INJ 1,000 ML IV SCH ×2 (11:25→23:22)
[2017-11-05] MEDS ORDERED: RESP: ALBUTEROL 2.5 MG/3 ML NEB (PRN) NEB (13:15)
[2017-11-05] MEDS ORDERED: DO NOT ADM ANY ANTICOAGULANT DRUGS PRN (13:15)
--- NOTE | 2017-11-05 13:48 | RADRPT ---
EXAM DATE/TIME: 11/05/2017 13:24 [place] COMPARISON: CHEST SINGLE AP, November 04, 2017, 2:43. INDICATIONS : Evaluate for Pneumothorax. Post bronchoscopy. MEDICAL HISTORY : Lupus. Renal failure SURGICAL HISTORY : Bilateral shoulder replacement. ENCOUNTER: Subsequent ACUITY: 2 days PAIN SCORE: 6/10 LOCATION: Bilateral chest FINDINGS: The heart is normal in size for the mediastinal contours are within normal limits. There has been mod erate interval improvement in the area of infiltrate and atelectasis in the right lung base. The rashi farhan of the parenchyma is clear. The patient is post bilateral shoulder arthroplasties. CONCLUSION: Significant interval improvement in the densely consolidated infiltrate in the right lung base. Ga Welch MD on November 05, 2017 at 13:45 Board Certified Radiologist. This report was verified electronically.
[2017-11-05] MEDS: ENOXAPARIN SODIUM 40 MG/0.4 ML SYRINGE SQ SCH (16:05)
--- NOTE | 2017-11-05 16:06 | HHI.PR ---
Subjective Remarks Status post bronchoscopy when seen today. Patient is lethargic and gives no history. Report for bronchoscopy pending but verbal report is that it went well and obstruction is clear. Objective Vital Signs Date Time Temp Pulse Resp B/P (MAP) Pulse Ox O2 Delivery O2 Flow Rate FiO2 11/05/17 15:41 98 Nasal Cannula 2.00 11/05/17 14:05 98.4 84 18 101/58 (72) 95 Room Air 11/05/17 13:45 89 18 113/63 (80) 95 Room Air 11/05/17 13:30 87 18 114/66 (82) 95 Room Air 11/05/17 13:15 98.4 94 16 118/60 (79) 95 Room Air 11/05/17 08:00 98.3 84 16 116/59 (78) 98 11/05/17 07:43 98 Nasal Cannula 3.00 11/05/17 06:16 97.9 81 22 98 11/05/17 04:00 101.5 102 22 111/55 (73) 97 11/05/17 00:00 99.1 83 22 106/53 (70) 98 11/04/17 23:53 90 11/04/17 20:00 96.7 93 26 130/68 (88) 100 I/O 11/04/17 11/04/17 11/04/17 11/05/17 11/05/17 11/05/17 07:00 15:00 23:00 07:00 15:00 23:00 Intake Total 250 ml 1300 ml 1000 ml 810 ml Output Total 800 ml Balance 250 ml 1300 ml 200 ml 810 ml Intake Oral 0 ml 360 ml IV Total 250 ml 1300 ml 1000 ml 450 ml Output Urine Total 800 ml # Voids 1 1 # Bowel Movements 0 0 Result Diagram: 11/05/17 0630 11/05/17 1422 Objective Remarks GENERAL: NAD, lethargic status post procedure. HEAD: Normocephalic. NECK: Supple, trachea midline. No lymphadenopathy. EYES: No scleral icterus. No injection or drainage. CARDIOVASCULAR: Regular rate and rhythm without murmurs, gallops, or rubs. RESPIRATORY: Breath sounds equal bilaterally. No accessory muscle use. GASTROINTESTINAL: Abdomen soft, non-tender, nondistended. MUSCULOSKELETAL: No cyanosis, or edema. SKIN: Warm and dry. NEURO: No focal neurological deficitis. A/P Problem List: (1) Bronchial obstruction ICD Code: J98.09 - Other diseases of bronchus, not elsewhere classified (2) Immunosuppression ICD Code: D89.9 - Immunosuppression Status: Acute (3) Bilateral pneumonia ICD Code: J18.9 - Pneumonia, unspecified organism (4) Encephalopathy ICD Code: G93.40 - Encephalopathy Status: Acute Assessment and Plan 62-year-old female admitted secondary to encephalopathy with findings of bilateral pneumonia and right-sided bronchial obstruction. Bilateral pneumonia Continue Zosyn Continue azithromycin Continue oxygen support May be contributory to encephalopathy Right-sided bronchial obstruction Pulmonology following Status post bronchoscopy 11/05/17 Oxygen support Encephalopathy Improving Toxic (narcotics or benzodiazepines) versus metabolic (secondary to infection) Treat infection as above Narcotics returned secondary to pain Avoid benzodiazepines for now Nothing by mouth for now until alertness improves Seizures and alternate etiology Anxiety/depression Holding benzodiazepine for now Continue treatments Gout No exacerbation Rheumatoid arthritis Lupus Avascular necrosis Chronic back pain Immunocompromise related to treatment No change to treatments for now Follow for exacerbation signs Hypothyroidism history Low TSH and low T3. 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 Ga Carrasco MD Nov 05, 2017 16:06
[2017-11-05] MEDS: oxyCODONE/ACETAMINOPHEN 5 MG/325 MG TAB PO PRN (16:18)
[2017-11-05] MEDS: AZITHROMYCIN INJ 500 MG in SODIUM CHLOR 0.9% 250 ML INJ 250 ML IV SCH (20:07)
[2017-11-05] MEDS ORDERED: LACTATED RINGER'S 1000 ML INJ 1,000 ML IV ONE (21:15)
[2017-11-06] VITALS (11 sets, daily range): BP systolic 93–122; BP diastolic 54–73; PULSE 62–111; RESP 18–20; TEMP 97.8–98.9; O2SAT 96–100
[2017-11-06] MEDS: RESP: ACETYLCYSTEINE 10% 30 ML NEB NEB SCH ×4 (01:57→21:57)
[2017-11-06] MEDS: RESP: ALBUTEROL 2.5 MG/IPRATROPIUM 0.5 MG NEB (PRN) INH ×2 (01:57→23:30)
[2017-11-06] MEDS: PIPERACIL-TAZO 3.375 GM PREMIX 50 ML IV SCH ×4 (03:38→20:05)
[2017-11-06] MEDS: methylPREDNISolone SOD SUCC 40 MG/1 ML VIAL IV PUSH SCH ×3 (06:39→20:06)
[2017-11-06] MEDS: SODIUM CHLORIDE 0.9% FLUSH 10 ML FLUSH IV FLUSH SCH ×2 (08:59→20:06)
[2017-11-06] MEDS: oxyCODONE/ACETAMINOPHEN 5 MG/325 MG TAB PO PRN ×4 (08:59→23:58)
[2017-11-06 09:24] LABS: AUTOMATED NEUTROPHIL # 10.8 TH/MM3 (1.8-7.7); HEMATOCRIT 25.6 % (35.0-46.0); HEMOGLOBIN 8.9 GM/DL (11.6-15.3); LYMPH % 2.5 % (9.0-44.0); LYMPHOCYTE # 0.3 TH/MM3 (1.0-4.8); MEAN CELL VOLUME 102.5 FL (80.0-100.0); MEAN CORPUSCULAR HEMOGLOBIN 35.8 PG (27.0-34.0); MEAN CORPUSCULAR HGB CONC 34.9 % (32.0-36.0); MEAN PLATELET VOLUME 7.6 FL (7.0-11.0); MONO % 3.6 % (0.0-8.0); MONOCYTE # 0.4 TH/MM3 (0-0.9); NEUT % 93.9 % (16.0-70.0); PLATELET COUNT 251 TH/MM3 (150-450); RED BLOOD COUNT 2.49 MIL/MM3 (4.00-5.30); WHITE BLOOD COUNT 11.5 TH/MM3 (4.0-11.0)
[2017-11-06] MEDS: RESP: ALBUTEROL 2.5 MG/IPRATROPIUM 0.5 MG NEB (SCH) NEB ×4 (09:32→20:00)
[2017-11-06 09:52] LABS: ALBUMIN 2.4 GM/DL (3.4-5.0); AST (GOT) 79 U/L (15-37); BICARBONATE 20.4 MEQ/L (21.0-32.0); BLOOD UREA NITROGEN 10 MG/DL (7-18); CALCIUM 8.3 MG/DL (8.5-10.1); CHLORIDE 110 MEQ/L (98-107); CREATININE 0.62 MG/DL (0.50-1.00); GLOMERULAR FILTRATION RATE 98 ML/MIN (>89); GLUCOSE,RANDOM 191 MG/DL (74-106); SODIUM (NA) 141 MEQ/L (136-145)
[2017-11-06 10:02] LABS: ALKALINE PHOSPHATASE 81 U/L (45-117); ALT (GPT) 35 U/L (10-53); RANDOM VANCOMYCIN 3.2 COMMENT; TOTAL BILIRUBIN ADULT 0.2 MG/DL (0.2-1.0); TOTAL PROTEIN 5.3 GM/DL (6.4-8.2)
[2017-11-06] MEDS ORDERED: POTASSIUM CHLORIDE 20 MEQ PWD PACKET PO ONE (13:00)
[2017-11-06] MEDS: GABAPENTIN 400 MG CAP PO SCH ×2 (13:00→17:35)
[2017-11-06] MEDS: VANCOMYCIN 1 GM/200 ML PREMIX IV SCH (13:46)
--- NOTE | 2017-11-06 15:54 | HHI.PR ---
Subjective Remarks Well status post bronchoscopy. Mental status and alertness have returned to prior baseline. Potassium remained unstable. She also remains relatively weak. Physical therapy will be started. Anemia present on labs today. Objective Vital Signs Date Time Temp Pulse Resp B/P (MAP) Pulse Ox O2 Delivery O2 Flow Rate FiO2 11/06/17 14:33 18 11/06/17 12:00 98.8 80 20 108/55 (72) 100 11/06/17 09:34 97 11/06/17 08:00 98.0 86 19 122/67 (85) 97 11/06/17 08:00 111 11/06/17 04:00 98.2 99 20 97/55 (69) 100 11/06/17 03:44 109 11/06/17 01:57 100 Nasal Cannula 3.00 11/06/17 00:00 97.8 90 18 93/54 (67) 99 11/05/17 23:59 87 11/05/17 20:00 99 11/05/17 20:00 98.4 92 18 81/48 (59) 98 11/05/17 16:55 97 11/05/17 16:00 96.8 96 17 100/53 (69) 99 I/O 11/05/17 11/05/17 11/05/17 11/06/17 11/06/17 11/06/17 06:59 14:59 22:59 06:59 14:59 22:59 Intake Total 810 ml 1540 ml 1640 ml 120 ml Balance 810 ml 1540 ml 1640 ml 120 ml Intake Oral 360 ml 240 ml 640 ml 120 ml IV Total 450 ml 1300 ml 1000 ml # Voids 1 3 3 # Bowel Movements 0 1 0 Result Diagram: 11/06/17 0725 11/06/17 0725 Objective Remarks GENERAL: NAD, alert and oriented 3. HEAD: Normocephalic. NECK: Supple, trachea midline. No lymphadenopathy. EYES: No scleral icterus. No injection or drainage. CARDIOVASCULAR: Regular rate and rhythm without murmurs, gallops, or rubs. RESPIRATORY: Breath sounds equal bilaterally. No accessory muscle use. GASTROINTESTINAL: Abdomen soft, non-tender, nondistended. MUSCULOSKELETAL: No cyanosis, or edema. SKIN: Warm and dry. NEURO: No focal neurological deficitis. A/P Problem List: (1) Bronchial obstruction ICD Code: J98.09 - Other diseases of bronchus, not elsewhere classified (2) Immunosuppression ICD Code: D89.9 - Immunosuppression Status: Acute (3) Bilateral pneumonia ICD Code: J18.9 - Pneumonia, unspecified organism (4) Encephalopathy ICD Code: G93.40 - Encephalopathy Status: Acute Assessment and Plan 62-year-old female admitted secondary to encephalopathy with findings of bilateral pneumonia and right-sided bronchial obstruction. Improving with antibiotics and status post bronchoscopy. Plan for follow-up of bronchoscopy biopsy results with Dr. Riddle as an outpatient. Start physical therapy. IV fluids discontinued today. Monitor trouble CK tomorrow morning. Follow CBC. Patient placed back on most baseline medications at this point. Bilateral pneumonia Continue Zosyn Continue azithromycin Continue oxygen support May be contributory to encephalopathy Right-sided bronchial obstruction Pulmonology following Status post bronchoscopy 11/05/17 Oxygen support Encephalopathy Improving Toxic (narcotics or benzodiazepines) versus metabolic (secondary to infection) Treat infection as above Narcotics returned secondary to pain Avoid benzodiazepines for now Nothing by mouth for now until alertness improves Seizures and alternate etiology Anxiety/depression Holding benzodiazepine for now Continue treatments Gout No exacerbation Rheumatoid arthritis Lupus Avascular necrosis Chronic back pain Immunocompromise related to treatment No change to treatments for now Follow for exacerbation signs Hypothyroidism history Low TSH and low T3. 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 DVT prophylaxis SCDs Discharge planning Possible discharge in 1-2 days based on future clinical status and stability while working with PT Ga Carrasco MD Nov 06, 2017 15:54
[2017-11-06] MEDS: ALPRAZolam 0.25 MG TAB PO PRN ×2 (17:28→23:56)
[2017-11-06] MEDS: ENOXAPARIN SODIUM 40 MG/0.4 ML SYRINGE SQ SCH (18:12)
[2017-11-06] MEDS: AZITHROMYCIN INJ 500 MG in SODIUM CHLOR 0.9% 250 ML INJ 250 ML IV SCH ×2 (20:00→21:17)
[2017-11-06] MEDS: POTASSIUM CHLORIDE 20 MEQ CONTROLLED RELEASE TAB PO SCH (20:05)
[2017-11-07] VITALS (8 sets, daily range): BP systolic 122–175; BP diastolic 73–91; PULSE 72–103; RESP 17–20; TEMP 96.8–97.5; O2SAT 96–100
[2017-11-07] MEDS: VANCOMYCIN 1 GM/200 ML PREMIX IV SCH ×2 (03:01→14:20)
[2017-11-07] MEDS: oxyCODONE/ACETAMINOPHEN 5 MG/325 MG TAB PO PRN ×5 (03:50→21:06)
[2017-11-07] MEDS: PIPERACIL-TAZO 3.375 GM PREMIX 50 ML IV SCH ×4 (03:50→21:47)
[2017-11-07] MEDS: RESP: ACETYLCYSTEINE 10% 30 ML NEB NEB SCH ×3 (04:00→21:55)
[2017-11-07] MEDS: LEVOTHYROXINE SODIUM 50 MCG TAB PO SCH (05:56)
[2017-11-07] MEDS: ALPRAZolam 0.25 MG TAB PO PRN ×2 (05:56→12:00)
[2017-11-07] MEDS: RESP: ALBUTEROL 2.5 MG/IPRATROPIUM 0.5 MG NEB (SCH) NEB ×4 (08:00→21:55)
[2017-11-07] MEDS: predniSONE 5 MG TAB PO SCH (08:59)
[2017-11-07] MEDS: VENLAFAXINE HCL XR 75 MG CAP PO SCH (08:59)
[2017-11-07] MEDS: POTASSIUM CHLORIDE 20 MEQ CONTROLLED RELEASE TAB PO SCH ×2 (08:59→19:52)
[2017-11-07] MEDS: GABAPENTIN 400 MG CAP PO SCH ×3 (08:59→16:52)
[2017-11-07] MEDS: SODIUM CHLORIDE 0.9% FLUSH 10 ML FLUSH IV FLUSH SCH ×2 (09:00→19:52)
[2017-11-07] MEDS: FOLIC ACID 1 MG TAB PO SCH (09:00)
[2017-11-07] MEDS: methylPREDNISolone SOD SUCC 40 MG/1 ML VIAL IV PUSH SCH ×2 (09:00→19:52)
[2017-11-07 09:20] LABS: AUTOMATED NEUTROPHIL # 12.3 TH/MM3 (1.8-7.7); BASOPHIL % 0.1 % (0.0-2.0); HEMATOCRIT 27.1 % (35.0-46.0); LYMPH % 3.1 % (9.0-44.0); LYMPHOCYTE # 0.4 TH/MM3 (1.0-4.8); MEAN CELL VOLUME 103.4 FL (80.0-100.0); MEAN CORPUSCULAR HEMOGLOBIN 34.3 PG (27.0-34.0); MEAN CORPUSCULAR HGB CONC 33.2 % (32.0-36.0); MEAN PLATELET VOLUME 7.8 FL (7.0-11.0); MONO % 6.2 % (0.0-8.0); MONOCYTE # 0.8 TH/MM3 (0-0.9); NEUT % 90.6 % (16.0-70.0); PLATELET COUNT 286 TH/MM3 (150-450); RED BLOOD COUNT 2.62 MIL/MM3 (4.00-5.30); RED CELL DISTRIBUTION WIDTH 15.5 % (11.6-17.2); WHITE BLOOD COUNT 13.6 TH/MM3 (4.0-11.0)
[2017-11-07 09:46] LABS: ALBUMIN 2.5 GM/DL (3.4-5.0); AST (GOT) 55 U/L (15-37); BICARBONATE 23.7 MEQ/L (21.0-32.0); BLOOD UREA NITROGEN 8 MG/DL (7-18); CALCIUM 7.9 MG/DL (8.5-10.1); CHLORIDE 108 MEQ/L (98-107); CREATININE 0.68 MG/DL (0.50-1.00); GLOMERULAR FILTRATION RATE 88 ML/MIN (>89); GLUCOSE,RANDOM 144 MG/DL (74-106); SODIUM (NA) 141 MEQ/L (136-145)
[2017-11-07 09:47] LABS: ALT (GPT) 42 U/L (10-53)
[2017-11-07 09:50] LABS: ALKALINE PHOSPHATASE 91 U/L (45-117); TOTAL BILIRUBIN ADULT 0.2 MG/DL (0.2-1.0); TOTAL PROTEIN 5.6 GM/DL (6.4-8.2)
[2017-11-07 09:53] LABS: BANDS 16 % (0-6); LYMPHOCYTES 6 % (9-44); MONOCYTES 5 % (0-8); NEUTROPHIL # MANUAL DIFF 12.1 TH/MM3 (1.8-7.7); POLYS (SEG NEUTROPHILS) 73 % (16-70)
[2017-11-07] MEDS ORDERED: PHARMACY ORDERED LAB ONE (13:45)
[2017-11-07] MEDS: ENOXAPARIN SODIUM 40 MG/0.4 ML SYRINGE SQ SCH (16:52)
[2017-11-07] MEDS: ALPRAZolam 0.5 MG TAB PO SCH ×2 (17:35→22:50)
--- NOTE | 2017-11-07 18:20 | RADRPT ---
EXAM DATE/TIME: 11/07/2017 18:01 [facility] COMPARISON: CHEST SINGLE AP, November 05, 2017, 13:24. INDICATIONS : Short of Breath MEDICAL HISTORY : Lupus. Renal failure SURGICAL HISTORY : Bilateral shoulder replacement ENCOUNTER: Subsequent ACUITY: 4 - 6 days PAIN SCORE: 3/10 LOCATION: chest FINDINGS: Moderate right and small left pleural effusions with basilar consolidation noted, worse. There also a ppears to be some consolidation developing in the right upper lobe. Heart size stable, within normal limits. CONCLUSION: 1. Developing right upper lobe infiltrate. 2. Moderate right and small left pleural effusions with bibasilar consolidation present, worse. Alex Gallegos MD on November 07, 2017 at 18:16 Board Certified Radiologist. This report was verified electronically.
--- NOTE | 2017-11-07 19:18 | HHI.PR ---
Subjective Remarks 62F who says she is feeling stronger each day, but apprehensive about going home too early and still feels more comfortable on oxygen. Denies fevers. Objective Vitals Vital Signs Date Time Temp Pulse Resp B/P (MAP) Pulse Ox O2 Delivery O2 Flow Rate FiO2 11/07/17 16:00 97.5 100 18 158/89 (112) 96 11/07/17 12:00 97.0 96 18 125/73 (90) 100 11/07/17 08:00 97.2 72 17 156/78 (104) 98 11/07/17 04:00 97.5 89 18 122/79 (93) 98 11/07/17 00:00 96.8 103 20 133/84 (100) 99 11/06/17 20:00 97.9 96 20 117/73 (88) 100 11/06/17 19:40 96 Nasal Cannula 2.00 11/06/17 19:29 92 I/O 11/06/17 11/06/17 11/06/17 11/07/17 11/07/17 11/07/17 07:00 15:00 23:00 07:00 15:00 23:00 Intake Total 1640 ml 120 ml 1500 ml 250 ml 50 ml Output Total 1200 ml Balance 1640 ml 120 ml 300 ml 250 ml 50 ml Intake Oral 640 ml 120 ml 1200 ml IV Total 1000 ml 300 ml 250 ml 50 ml Output Urine Total 1200 ml # Voids 3 # Bowel Movements 0 1 Result Diagram: 11/07/17 0740 11/07/17 0740 Objective Remarks GENERAL: Well-nourished, a little disheveled SKIN: Warm and dry. HEAD: Normocephalic. EYES: No scleral icterus. No injection or drainage. NECK: Supple, trachea midline. No JVD or lymphadenopathy. CARDIOVASCULAR: Regular rate and rhythm without murmurs, gallops, or rubs. RESPIRATORY: Breath sounds equal bilaterally, right side basilar crackles GASTROINTESTINAL: Abdomen soft, non-tender, nondistended. MUSCULOSKELETAL: No cyanosis, or edema. BACK: Nontender without obvious deformity. No CVA tenderness. A/P Problem List: (1) Bilateral pneumonia ICD Code: J18.9 - Pneumonia, unspecified organism (2) Bronchial obstruction ICD Code: J98.09 - Other diseases of bronchus, not elsewhere classified (3) Rheumatoid arthritis ICD Code: M06.9 - Rheumatoid arthritis Status: Acute (4) Immunosuppression ICD Code: D89.9 - Immunosuppression Status: Acute (5) Encephalopathy ICD Code: G93.40 - Encephalopathy Status: Acute Assessment and Plan Bilateral pneumonia Continue Zosyn and Azithromycin Continue oxygen support Right-sided bronchial obstruction Pulmonology following Status post bronchoscopy 11/05/17 Oxygen support Encephalopathy Mostly resolved Anxiety/depression Tolerating Xanax Rheumatoid arthritis Lupus Avascular necrosis Chronic back pain Immunocompromise related to treatment No change to treatments for now Follow for exacerbation signs DVT prophylaxis SCDs Discharge planning Discharge in 1-2 days, will get oxygen walk test Serge Carrasco MD Nov 07, 2017 19:17
[2017-11-07] MEDS: AZITHROMYCIN INJ 500 MG in SODIUM CHLOR 0.9% 250 ML INJ 250 ML IV SCH (19:51)
[2017-11-08] VITALS (10 sets, daily range): BP systolic 135–171; BP diastolic 74–103; PULSE 74–99; RESP 18–20; TEMP 96.4–98.6; O2SAT 93–98
[2017-11-08] MEDS: ZOLPIDEM TARTRATE 5 MG TAB PO PRN ×2 (00:11→20:49)
[2017-11-08] MEDS: VANCOMYCIN 1 GM/200 ML PREMIX IV SCH ×2 (03:06→14:30)
[2017-11-08] MEDS: PIPERACIL-TAZO 3.375 GM PREMIX 50 ML IV SCH ×4 (03:50→22:46)
[2017-11-08] MEDS: RESP: ACETYLCYSTEINE 10% 30 ML NEB NEB SCH ×4 (04:00→19:46)
[2017-11-08] MEDS: ALPRAZolam 0.5 MG TAB PO SCH ×4 (04:45→23:59)
[2017-11-08] MEDS: LEVOTHYROXINE SODIUM 50 MCG TAB PO SCH (04:45)
[2017-11-08] MEDS: oxyCODONE/ACETAMINOPHEN 5 MG/325 MG TAB PO PRN ×4 (04:45→21:34)
[2017-11-08] MEDS: VENLAFAXINE HCL XR 75 MG CAP PO SCH (09:01)
[2017-11-08] MEDS: GABAPENTIN 400 MG CAP PO SCH ×3 (09:02→17:32)
[2017-11-08] MEDS: methylPREDNISolone SOD SUCC 40 MG/1 ML VIAL IV PUSH SCH ×2 (09:02→20:43)
[2017-11-08] MEDS: predniSONE 5 MG TAB PO SCH (09:02)
[2017-11-08] MEDS: FOLIC ACID 1 MG TAB PO SCH (09:02)
[2017-11-08] MEDS: SODIUM CHLORIDE 0.9% FLUSH 10 ML FLUSH IV FLUSH SCH ×2 (09:02→20:43)
[2017-11-08] MEDS: POTASSIUM CHLORIDE 20 MEQ CONTROLLED RELEASE TAB PO SCH ×2 (09:02→20:43)
[2017-11-08] MEDS: RESP: ALBUTEROL 2.5 MG/IPRATROPIUM 0.5 MG NEB (SCH) NEB ×4 (09:18→19:46)
--- NOTE | 2017-11-08 09:34 | MP ---
cc: STEFANIE YEE DATE OF SURGERY 11/05/2017 PROCEDURE Fiberoptic bronchoscopy with biopsy, brushings and washings. PREOPERATIVE DIAGNOSIS Right lower lobe atelectasis and possible bronchial obstruction. POSTOPERATIVE DIAGNOSIS Right lower lobe bronchial lesion with mucous plugging and atelectasis. ANESTHESIA General with intubation. SURGEON Dr. Apple Yee. PROCEDURE AND FINDINGS The patient was intubated under general anesthesia following which the Olympus IT180 bronchoscope was used to visualize the bronchi. The scope was advanced via the endotracheal tube into the trachea. The trachea and kasandra appeared normal. The scope was then advanced to the right main stem and right upper lobe segmental bronchi. These bronchi demonstrated mild endobronchitis with mucoid secretions that were suctioned out. Saline washings were done. Next, the right middle lobe and segmental bronchi were visualized and these bronchi demonstrated mucoid secretions and moderate endobronchitis. The scope was then advanced into the right lower lobe segmental bronchi. The right lower lobe segmental bronchi demonstrated a mucosal lesion with cobblestoning of the mucosa as well as granulation tissue extending down into the medial and posterior basilar segmental bronchi of the right lower lobe narrowing the lumen of the bronchus by about 50%. There was friability of the tissue and it bled easily to touch. There were mucous plugs within the bronchial lumen and these were suctioned out and saline lavage was carried out until clear. Biopsies were done from the right lower lobe bronchi as well as brushings for cytology and brushings for micro. Saline washings were done until clear and minimal bleeding was observed during the procedure. The scope was then advanced into the left main stem and left upper lobe segmental bronchi which demonstrated a few mucoid secretions and mild endobronchitis. The right lower lobe had bronchial obstruction with atelectasis. The scope was then advanced towards the left lower lobe segmental bronchi which demonstrated mild endobronchitis with mucoid secretions and these were suctioned out. Saline washings were done. No endobronchial masses were seen here. Lavage was carried out and the procedure was then terminated. The patient tolerated the procedure well. MD DIEUDONNE Sy/BREA /1:04 PM /9:24 AM
[2017-11-08] MEDS: ENOXAPARIN SODIUM 40 MG/0.4 ML SYRINGE SQ SCH (17:31)
--- NOTE | 2017-11-08 19:34 | HHI.PR ---
Subjective Remarks Feels Better. Has loose stools. No fever. Pathology shows Vegetable fibers and is Suggestive of aspiration CXR shows a Moderate Right effusion Objective Vital Signs Date Time Temp Pulse Resp B/P (MAP) Pulse Ox O2 Delivery O2 Flow Rate FiO2 11/08/17 16:21 98 Nasal Cannula 2.00 11/08/17 16:00 98.6 76 18 153/75 (101) 95 11/08/17 12:00 98.1 99 18 139/74 (95) 93 11/08/17 10:05 20 11/08/17 09:21 96 Nasal Cannula 2.00 11/08/17 08:00 98.3 84 18 167/103 (124) 95 11/08/17 04:00 96.4 74 20 171/101 (124) 96 11/08/17 00:15 97.6 93 20 153/84 (107) 96 11/07/17 21:59 98 Nasal Cannula 2.00 11/07/17 20:00 97.4 94 20 175/91 (119) 98 I/O 11/07/17 11/07/17 11/07/17 11/08/17 11/08/17 11/08/17 07:00 15:00 23:00 07:00 15:00 23:00 Intake Total 250 ml 50 ml 1580 ml 750 ml 50 ml 1138 ml Balance 250 ml 50 ml 1580 ml 750 ml 50 ml 1138 ml Intake Oral 980 ml 500 ml 888 ml IV Total 250 ml 50 ml 600 ml 250 ml 50 ml 250 ml # Voids 2 3 # Bowel Movements 1 3 Result Diagram: 11/07/17 0740 11/07/17 0740 Objective Remarks This thinly built middle-aged white female who is alert and pale in no acute distress. HEENT: Head normocephalic. Pupils reactive and equal. Tongue is moist. Throat is mildly injected. Ears have no inflammation. NECK: No bruits or thyroid enlargement or lymphadenopathy. CHEST: Equal movements with distant breath sounds. Wheezes throughout both lung caraballo and breath sounds markedly diminished over the right lower chest. Occ crackles on the right base with scattered wheezes heard. HEART: The heart sounds are irregular S1-S2. No murmur. No S3. ABDOMEN: Soft and benign. No masses or organomegaly. EXTREMITIES: No lesions or edema. Normal reflexes. No lesions or edema. Reflexes 1+. The patient does have multiple joint deformities of the extremities. NEUROLOGIC: No focal deficits identified. The patient is alert and talking appropriately and is responsive and cooperative. Assessment and Plan Assessment and Plan IMPRESSION 1. Right lower lobe atelectasis with pneumonia and possible obstructive pneumonitis. 2. History of rheumatoid arthritis. 3. Sepsis resolving 4. Systemic lupus 5. Probable obstructive airways disease. 6. Aspiration Pneumonia Plan : 1. Continue antibiotics , Zosyn/Zithro and add Flagyl 2. Nebs qid , duoneb. 3. Mucomyst 2 CC 20 % solution qid nebs 4. US of Chest in am 5. PFT in am. 6. CPT and Postural drainage 7. Swallow study and Aspiration Precaution. Vishnu Yee MD Nov 08, 2017 19:34
[2017-11-08] MEDS: AZITHROMYCIN INJ 500 MG in SODIUM CHLOR 0.9% 250 ML INJ 250 ML IV SCH (20:43)
[2017-11-08] MEDS: metroNIDAZOLE 500 MG INJ 100 ML IV SCH (21:34)
[2017-11-08] MEDS ORDERED: metroNIDAZOLE 500 MG TAB PO SCH (22:00)
--- NOTE | 2017-11-08 22:01 | HHI.PR ---
Subjective Remarks Pt states her chest feels less heavy today, but she still feels more comfortable when she is wearing oxygen. Cough is beginning to be productive of scant sputum. Objective Vitals Vital Signs Date Time Temp Pulse Resp B/P (MAP) Pulse Ox O2 Delivery O2 Flow Rate FiO2 11/08/17 16:21 98 Nasal Cannula 2.00 11/08/17 16:00 98.6 76 18 153/75 (101) 95 11/08/17 12:00 98.1 99 18 139/74 (95) 93 11/08/17 10:05 20 11/08/17 09:21 96 Nasal Cannula 2.00 11/08/17 08:00 98.3 84 18 167/103 (124) 95 11/08/17 04:00 96.4 74 20 171/101 (124) 96 11/08/17 00:15 97.6 93 20 153/84 (107) 96 11/07/17 21:59 98 Nasal Cannula 2.00 I/O 11/07/17 11/07/17 11/07/17 11/08/17 11/08/17 11/08/17 07:00 15:00 23:00 07:00 15:00 23:00 Intake Total 250 ml 50 ml 1580 ml 750 ml 50 ml 1138 ml Balance 250 ml 50 ml 1580 ml 750 ml 50 ml 1138 ml Intake Oral 980 ml 500 ml 888 ml IV Total 250 ml 50 ml 600 ml 250 ml 50 ml 250 ml # Voids 2 3 # Bowel Movements 1 3 Result Diagram: 11/07/17 0740 11/07/17 0740 Objective Remarks GENERAL: Well-nourished, a little disheveled SKIN: Warm and dry. HEAD: Normocephalic. EYES: No scleral icterus. No injection or drainage. NECK: Supple, trachea midline. No JVD or lymphadenopathy. CARDIOVASCULAR: Regular rate and rhythm without murmurs, gallops, or rubs. RESPIRATORY: Breath sounds equal bilaterally, right side basilar crackles GASTROINTESTINAL: Abdomen soft, non-tender, nondistended. MUSCULOSKELETAL: No cyanosis, or edema. BACK: Nontender without obvious deformity. No CVA tenderness. A/P Problem List: (1) Bilateral pneumonia ICD Code: J18.9 - Pneumonia, unspecified organism (2) Bronchial obstruction ICD Code: J98.09 - Other diseases of bronchus, not elsewhere classified (3) Rheumatoid arthritis ICD Code: M06.9 - Rheumatoid arthritis Status: Acute (4) Immunosuppression ICD Code: D89.9 - Immunosuppression Status: Acute (5) Encephalopathy ICD Code: G93.40 - Encephalopathy Status: Acute Assessment and Plan Bilateral pneumonia Continue Zosyn and Azithromycin Oxygen walk test requested Coverage for possible aspiration Right-sided bronchial obstruction Pulmonology following Status post bronchoscopy 11/05/17 Oxygen PRN Encephalopathy Resolved Anxiety/depression Tolerating Xanax Rheumatoid arthritis, Lupus Avascular necrosis Immunocompromise related to treatment Recommend she skip immune modulating medications until treatment for PNA is complete DVT prophylaxis SCDs Discharge planning Possible Discharge tomorrow if ambulating off of oxygen without decrease in pulse ox readings Serge Carrasco MD Nov 08, 2017 22:01
[2017-11-09] VITALS (8 sets, daily range): BP systolic 122–162; BP diastolic 67–79; PULSE 66–92; RESP 17–20; TEMP 97.3–98.6; O2SAT 95–99
[2017-11-09] MEDS: VANCOMYCIN 1 GM/200 ML PREMIX IV SCH (01:56)
[2017-11-09] MEDS: PIPERACIL-TAZO 3.375 GM PREMIX 50 ML IV SCH ×4 (03:36→20:15)
[2017-11-09] MEDS: oxyCODONE/ACETAMINOPHEN 5 MG/325 MG TAB PO PRN ×5 (03:36→21:59)
[2017-11-09] MEDS: metroNIDAZOLE 500 MG INJ 100 ML IV SCH ×3 (04:51→20:15)
[2017-11-09] MEDS: LOPERAMIDE HCL 2 MG CAP PO PRN ×2 (05:49→12:43)
[2017-11-09] MEDS: ALPRAZolam 0.5 MG TAB PO SCH ×4 (05:49→23:46)
[2017-11-09] MEDS: LEVOTHYROXINE SODIUM 50 MCG TAB PO SCH (05:49)
[2017-11-09] MEDS: SODIUM CHLORIDE 0.9% FLUSH 10 ML FLUSH IV FLUSH SCH ×2 (09:00→20:16)
[2017-11-09] MEDS: POTASSIUM CHLORIDE 20 MEQ CONTROLLED RELEASE TAB PO SCH ×2 (09:00→20:16)
[2017-11-09] MEDS: GABAPENTIN 400 MG CAP PO SCH ×3 (09:00→18:00)
--- NOTE | 2017-11-09 09:02 | RADRPT ---
EXAM DATE/TIME: 11/09/2017 08:24 [facility] COMPARISON: No previous studies available for comparison. INDICATIONS : Pleural effusion. MEDICAL HISTORY : Hypothyroidism. Rheumatoid arthritis. Glasses. Migraine. Dyspnea. Renal failure. Arthitis. GOUT. De pression. Anxiety. Lupus. MRSA. SURGICAL HISTORY : Cholecystectomy. Lasik surgery. Bilateral shoulder replacement. Breast augmentation. ENCOUNTER: Initial ACUITY: 1 day PAIN SCORE: 3/10 LOCATION: Right chest MEASUREMENTS: SKIN TO PARIETAL PLEURA: 1.6 cm SKIN TO MAX SAFE DEPTH: 4.6 cm ESTIMATED FLUID VOLUME: 418 cc FLUID COMPOSITION: simple FINDINGS: Pleural effusion as above. Successful marking of right chest. CONCLUSION: Successful marking of right chest for pleural effusion as described above. Chris Calzada MD on November 09, 2017 at 8:59 Board Certified Radiologist. This report was verified electronically.
[2017-11-09] MEDS: VENLAFAXINE HCL XR 75 MG CAP PO SCH (09:05)
[2017-11-09] MEDS: predniSONE 5 MG TAB PO SCH ×2 (09:06→20:15)
[2017-11-09] MEDS: FOLIC ACID 1 MG TAB PO SCH (09:06)
[2017-11-09] MEDS: methylPREDNISolone SOD SUCC 40 MG/1 ML VIAL IV PUSH SCH (09:08)
--- NOTE | 2017-11-09 09:40 | RADRPT ---
EXAM DATE/TIME: 11/09/2017 08:24 [facility] COMPARISON: No previous studies available for comparison. INDICATIONS : Left pleural effusion. MEDICAL HISTORY : Hypothyroidism. Rheumatoid arthritis. Glasses. Migraine. Dyspnea. Renal failure.Arthitis. GOUT. Depre ssion. Anxiety. Lupus. MRSA. SURGICAL HISTORY : Cholecystectomy. Lasik surgery. Bilateral shoulder replacement. Breast augmentation. ENCOUNTER: Initial ACUITY: 1 day PAIN SCORE: 3/10 LOCATION: Left chest MEASUREMENTS: SKIN TO PARIETAL PLEURA: Inadequate fluid SKIN TO MAX SAFE DEPTH: Inadequate fluid ESTIMATED FLUID VOLUME: 143 cc FLUID COMPOSITION: simple FINDINGS: No marking was performed. CONCLUSION: 1. Small left pleural effusion with insufficient collection for thoracentesis. Therefore, no marking was performed. Victor Hugo Luna MD on November 09, 2017 at 9:36 Board Certified Radiologist. This report was verified electronically.
--- NOTE | 2017-11-09 10:22 | RADRPT ---
EXAM DATE/TIME: 11/09/2017 00:00 [facility] COMPARISON: No previous studies available for comparison. INDICATIONS : Aspiration. FLUORO TIME: 1.9 minutes IMAGE COUNT: 0 CONTRAST: Dose as prescribed by speech pathologist. MEDICAL HISTORY : Lupus.Arthitis. GOUT. Depression. Anxiety. Lupus. Renal failure. Hypothyroidism. Rheumatoid arthritis . Glasses. Migraine. Dyspnea. Renal failure SURGICAL HISTORY : Cholecystectomy. Lasik surgery. Breast augmentation. Bilateral shoulder replacement ENCOUNTER: Subsequent ACUITY: 1 week PAIN SCORE: 0/10 LOCATION: Esoophagus. FINDINGS: A modified barium swallow was performed with speech pathology. Patient was given a variety of liquids to swallow. The cervical esophagus there is normal anatomic and physiologically. For a full detailed report, see report by the speech pathologist. CONCLUSION: Negative examination. Please see space pathology report Sterling Durant MD on November 09, 2017 at 10:18 Board Certified Radiologist. This report was verified electronically.
[2017-11-09] MEDS: ENOXAPARIN SODIUM 40 MG/0.4 ML SYRINGE SQ SCH (18:00)
--- NOTE | 2017-11-09 18:10 | HHI.PR ---
Subjective Remarks Mrs. Eugene is feeling no worse, but her CXR is looking worse and bronchial wash cultures resulted in "yeast" growth. Objective Vitals Vital Signs Date Time Temp Pulse Resp B/P (MAP) Pulse Ox O2 Delivery O2 Flow Rate FiO2 11/09/17 16:00 98.2 74 19 147/67 (93) 95 11/09/17 12:00 97.9 85 20 122/75 (91) 96 11/09/17 09:46 97 Nasal Cannula 2.00 11/09/17 08:00 97.3 66 20 162/79 (106) 97 11/09/17 04:36 18 11/09/17 04:00 98.6 72 17 132/72 (92) 97 11/09/17 03:47 67 11/09/17 00:00 98.6 92 17 132/78 (96) 95 11/08/17 23:53 81 11/08/17 20:00 97.6 95 19 135/78 (97) 96 11/08/17 19:50 81 I/O 11/08/17 11/08/17 11/08/17 11/09/17 11/09/17 11/09/17 07:00 15:00 23:00 07:00 15:00 23:00 Intake Total 750 ml 50 ml 1488 ml 1900 ml 120 ml Balance 750 ml 50 ml 1488 ml 1900 ml 120 ml Intake Oral 500 ml 888 ml 1500 ml 120 ml IV Total 250 ml 50 ml 600 ml 400 ml # Voids 3 2 # Bowel Movements 3 0 Result Diagram: 11/07/17 0740 11/07/17 0740 Objective Remarks GENERAL: Well-nourished, a little disheveled SKIN: Warm and dry. HEAD: Normocephalic. EYES: No scleral icterus. No injection or drainage. NECK: Supple, trachea midline. No JVD or lymphadenopathy. CARDIOVASCULAR: Regular rate and rhythm without murmurs, gallops, or rubs. RESPIRATORY: Breath sounds equal bilaterally, right side basilar crackles GASTROINTESTINAL: Abdomen soft, non-tender, nondistended. MUSCULOSKELETAL: No cyanosis, or edema. BACK: Nontender without obvious deformity. No CVA tenderness. A/P Problem List: (1) Bilateral pneumonia ICD Code: J18.9 - Pneumonia, unspecified organism (2) Bronchial obstruction ICD Code: J98.09 - Other diseases of bronchus, not elsewhere classified (3) Rheumatoid arthritis ICD Code: M06.9 - Rheumatoid arthritis Status: Acute (4) Immunosuppression ICD Code: D89.9 - Immunosuppression Status: Acute (5) Encephalopathy ICD Code: G93.40 - Encephalopathy Status: Acute Assessment and Plan Bilateral pneumonia Continue Zosyn and Azithromycin coverage for possible aspiration Oxygen walk test demonstrated desaturation to 89% with light activity Pulmonary Yeast Likely due to immunosuppressive therapy for Lupus ID consulted Right-sided bronchial obstruction Pulmonology following Status post bronchoscopy 11/05/17 Oxygen PRN Encephalopathy Resolved Anxiety/depression PRN xanax Rheumatoid arthritis, Lupus Avascular necrosis Immunocompromise related to treatment Recommend she skip immune modulating medications until treatment for PNA is complete DVT prophylaxis Serge Samuels MD Nov 09, 2017 18:10
--- NOTE | 2017-11-09 18:46 | HHI.PR ---
Subjective Remarks Feels much Better. Has loose stools. No fever.Chest ultrasound shows a moderate Right effusion Bronch wash is negative for AFB but E Coli noted CXR shows a Moderate Right effusion Objective Vital Signs Date Time Temp Pulse Resp B/P (MAP) Pulse Ox O2 Delivery O2 Flow Rate FiO2 11/09/17 16:00 98.2 74 19 147/67 (93) 95 11/09/17 12:00 97.9 85 20 122/75 (91) 96 11/09/17 09:46 97 Nasal Cannula 2.00 11/09/17 08:00 97.3 66 20 162/79 (106) 97 11/09/17 04:36 18 11/09/17 04:00 98.6 72 17 132/72 (92) 97 11/09/17 03:47 67 11/09/17 00:00 98.6 92 17 132/78 (96) 95 11/08/17 23:53 81 11/08/17 20:00 97.6 95 19 135/78 (97) 96 11/08/17 19:50 81 I/O 11/08/17 11/08/17 11/08/17 11/09/17 11/09/17 11/09/17 07:00 15:00 23:00 07:00 15:00 23:00 Intake Total 750 ml 50 ml 1488 ml 1900 ml 120 ml 900 ml Output Total 800 ml Balance 750 ml 50 ml 1488 ml 1900 ml 120 ml 100 ml Intake Oral 500 ml 888 ml 1500 ml 120 ml 900 ml IV Total 250 ml 50 ml 600 ml 400 ml Output Urine Total 800 ml # Voids 3 2 # Bowel Movements 3 0 1 Result Diagram: 11/07/17 0740 11/07/17 0740 Objective Remarks This thinly built middle-aged white female who is alert and pale in no acute distress. HEENT: Head normocephalic. Pupils reactive and equal. Tongue is moist. Throat is mildly injected. Ears have no inflammation. NECK: No bruits or thyroid enlargement or lymphadenopathy. CHEST: Equal movements with distant breath sounds. Wheezes over both lung caraballo and breath sounds markedly diminished over the right lower chest. Occ crackles on the right base with scattered wheezes heard. HEART: The heart sounds are irregular S1-S2. No murmur. No S3. ABDOMEN: Soft and benign. No masses or organomegaly. EXTREMITIES: No lesions or edema. Normal reflexes. Reflexes 1+. The patient does have multiple joint deformities of the extremities. NEUROLOGIC: No focal deficits identified. The patient is alert and talking appropriately and is responsive and cooperative. Assessment and Plan Assessment and Plan IMPRESSION 1. Right lower lobe atelectasis with pneumonia and possible obstructive pneumonitis. 2. History of rheumatoid arthritis. 3. Sepsis resolving 4. Systemic lupus 5. Probable obstructive airways disease. 6. Aspiration Pneumonia Plan : 1. Continue antibiotics , Zosyn/Zithro and Flagyl 2. Nebs qid , duoneb. 3. Mucomyst 2 CC 20 % solution qid nebs 4. Will do thoracentesis on Right 5. ID consult 6. CPT and Postural drainage 7. Aspiration Precaution. Vishnu Yee MD Nov 09, 2017 18:46
[2017-11-09] MEDS: AZITHROMYCIN INJ 500 MG in SODIUM CHLOR 0.9% 250 ML INJ 250 ML IV SCH (20:14)
[2017-11-09] MEDS: ZOLPIDEM TARTRATE 5 MG TAB PO PRN (20:40)
[2017-11-10] VITALS (7 sets, daily range): BP systolic 96–166; BP diastolic 52–85; PULSE 65–85; RESP 17–22; TEMP 97.6–98.7; O2SAT 96–99
[2017-11-10] MEDS: PIPERACIL-TAZO 3.375 GM PREMIX 50 ML IV SCH ×4 (03:27→20:01)
[2017-11-10] MEDS: oxyCODONE/ACETAMINOPHEN 5 MG/325 MG TAB PO PRN ×5 (03:27→22:58)
[2017-11-10] MEDS: metroNIDAZOLE 500 MG INJ 100 ML IV SCH ×3 (03:28→19:56)
[2017-11-10] MEDS: ALPRAZolam 0.5 MG TAB PO SCH ×4 (05:37→23:34)
[2017-11-10] MEDS: LEVOTHYROXINE SODIUM 50 MCG TAB PO SCH (05:37)
[2017-11-10] MEDS: FOLIC ACID 1 MG TAB PO SCH (08:32)
[2017-11-10] MEDS: predniSONE 5 MG TAB PO SCH ×2 (08:32→19:56)
[2017-11-10] MEDS: VENLAFAXINE HCL XR 75 MG CAP PO SCH (08:32)
[2017-11-10] MEDS: POTASSIUM CHLORIDE 20 MEQ CONTROLLED RELEASE TAB PO SCH ×2 (08:33→19:56)
[2017-11-10] MEDS: GABAPENTIN 400 MG CAP PO SCH ×3 (08:34→17:22)
[2017-11-10] MEDS: SODIUM CHLORIDE 0.9% FLUSH 10 ML FLUSH IV FLUSH SCH ×2 (08:35→19:57)
[2017-11-10] MEDS: LOPERAMIDE HCL 2 MG CAP PO PRN ×2 (08:39→19:55)
[2017-11-10] MEDS ORDERED: PHARMACY ORDERED LAB ONE (13:45)
[2017-11-10] MEDS: ENOXAPARIN SODIUM 40 MG/0.4 ML SYRINGE SQ SCH ×2 (17:23→17:27)
--- NOTE | 2017-11-10 18:18 | HHI.PR ---
Subjective Remarks Pt is somewhat disappointed that she needs a thoracentesis today, but I explained that is a faster way to resolve her pulmonary effusion and overall speed up her recovery. Objective Vitals Vital Signs Date Time Temp Pulse Resp B/P (MAP) Pulse Ox O2 Delivery O2 Flow Rate FiO2 11/10/17 16:00 98.6 74 18 149/83 (105) 96 11/10/17 12:00 97.8 69 18 124/61 (82) 96 11/10/17 09:06 99 Nasal Cannula 2.00 11/10/17 08:00 98.2 70 17 135/73 (93) 97 11/10/17 04:39 20 11/10/17 04:00 97.6 65 20 166/85 (112) 98 11/10/17 00:00 97.6 81 20 120/73 (89) 97 11/09/17 20:00 97.9 66 18 160/78 (105) 99 11/09/17 20:00 67 I/O 11/09/17 11/09/17 11/09/17 11/10/17 11/10/17 11/10/17 07:00 15:00 23:00 07:00 15:00 23:00 Intake Total 1900 ml 120 ml 900 ml 360 ml Output Total 800 ml Balance 1900 ml 120 ml 100 ml 360 ml Intake Oral 1500 ml 120 ml 900 ml 360 ml IV Total 400 ml Output Urine Total 800 ml # Voids 2 3 # Bowel Movements 0 1 0 Result Diagram: 11/07/17 0740 11/07/17 0740 Objective Remarks GENERAL: Well-nourished, a little disheveled SKIN: Warm and dry. HEAD: Normocephalic. EYES: No scleral icterus. No injection or drainage. NECK: Supple, trachea midline. No JVD or lymphadenopathy. CARDIOVASCULAR: Regular rate and rhythm without murmurs, gallops, or rubs. RESPIRATORY: Breath sounds equal bilaterally, right side basilar crackles GASTROINTESTINAL: Abdomen soft, non-tender, nondistended. MUSCULOSKELETAL: No cyanosis, or edema. BACK: Nontender without obvious deformity. No CVA tenderness. A/P Problem List: (1) Bilateral pneumonia ICD Code: J18.9 - Pneumonia, unspecified organism (2) Bronchial obstruction ICD Code: J98.09 - Other diseases of bronchus, not elsewhere classified (3) Rheumatoid arthritis ICD Code: M06.9 - Rheumatoid arthritis Status: Acute (4) Immunosuppression ICD Code: D89.9 - Immunosuppression Status: Acute (5) Encephalopathy ICD Code: G93.40 - Encephalopathy Status: Acute Assessment and Plan Bilateral pneumonia Continue Zosyn and Azithromycin coverage for possible aspiration Oxygen walk test demonstrated desaturation to 89% with light activity Thoracentesis today to remove fluid from pulmonary effusion Pulmonary Yeast Likely due to immunosuppressive therapy for Lupus ID consulted Right-sided bronchial obstruction Pulmonology following Status post bronchoscopy 11/05/17 Oxygen PRN Anxiety/depression PRN xanax Rheumatoid arthritis, Lupus, Avascular necrosis Immunocompromise related to treatment Recommend she skip immune modulating medications until treatment for PNA is complete DVT prophylaxis Serge Samuels MD Nov 10, 2017 18:18
[2017-11-10] MEDS ORDERED: HEPARIN SODIUM - IV 10,000 UNITS/10 ML VIAL OTHER ONE (18:30)
--- NOTE | 2017-11-10 19:14 | RADRPT ---
EXAM DATE/TIME: 11/10/2017 19:01 [facility] COMPARISON: CHEST SINGLE AP, November 05, 2017, 13:24. INDICATIONS : Post thoracentesis. MEDICAL HISTORY : Lupus. Renal failure SURGICAL HISTORY : Bilateral shoulder replacement ENCOUNTER: Subsequent ACUITY: 1 week PAIN SCORE: 0/10 LOCATION: Bilateral chest FINDINGS: A small left pleural effusion is noted. No pneumothorax is noted. Bibasilar patchiness is noted consi stent with probable atelectasis and/or pneumonia. The heart is stable. Bilateral shoulder replacement s are unchanged. CONCLUSION: 1. Small left pleural effusion. 2. Bibasilar patchiness consistent with probable atelectasis and/or pneumonia. Gualberto Tate MD on November 10, 2017 at 19:09 Board Certified Radiologist. This report was verified electronically.
[2017-11-10 19:46] LABS: TOTAL PROTEIN,PLEURAL FLUID 1.6 GM/DL
[2017-11-10] MEDS: ZOLPIDEM TARTRATE 5 MG TAB PO PRN (19:55)
[2017-11-10] MEDS: AZITHROMYCIN INJ 500 MG in SODIUM CHLOR 0.9% 250 ML INJ 250 ML IV SCH (19:55)
[2017-11-10 21:00] LABS: PLEURAL FLUID HISTIOCYTES 17 %; PLEURAL FLUID LYMPHS 50 %; PLEURAL FLUID MESOTHELIAL 8 %; PLEURAL FLUID POLYS (SEGS) 25 %
[2017-11-10 21:01] LABS: PLEURAL FLUID RBC 48 /MM3 (0-0); PLEURAL FLUID WBC 76 /MM3 (0-10)
[2017-11-11] VITALS (7 sets, daily range): BP systolic 86–121; BP diastolic 51–70; PULSE 67–91; RESP 16–22; TEMP 97.6–101.5; O2SAT 95–98
[2017-11-11] MEDS ORDERED: ACETAMINOPHEN 325 MG TAB PO ONE (01:30)
[2017-11-11] MEDS ORDERED: oxyCODONE/ACETAMINOPHEN 5 MG/325 MG TAB PO ONE (01:30)
[2017-11-11] MEDS: metroNIDAZOLE 500 MG INJ 100 ML IV SCH ×2 (04:36→11:26)
[2017-11-11] MEDS: oxyCODONE/ACETAMINOPHEN 5 MG/325 MG TAB PO PRN ×3 (04:39→13:58)
[2017-11-11] MEDS: PIPERACIL-TAZO 3.375 GM PREMIX 50 ML IV SCH ×4 (05:35→22:05)
[2017-11-11] MEDS: LEVOTHYROXINE SODIUM 50 MCG TAB PO SCH (05:35)
[2017-11-11] MEDS: ALPRAZolam 0.5 MG TAB PO SCH ×3 (05:36→17:11)
[2017-11-11] MEDS: SODIUM CHLORIDE 0.9% FLUSH 10 ML FLUSH IV FLUSH SCH ×2 (09:11→21:57)
[2017-11-11] MEDS: FOLIC ACID 1 MG TAB PO SCH (09:12)
[2017-11-11] MEDS: predniSONE 5 MG TAB PO SCH ×2 (09:12→21:33)
[2017-11-11] MEDS: GABAPENTIN 400 MG CAP PO SCH ×3 (09:13→17:09)
[2017-11-11] MEDS: VENLAFAXINE HCL XR 75 MG CAP PO SCH (09:13)
--- NOTE | 2017-11-11 09:31 | MP ---
cc: STEFANIE YEE DATE OF SURGERY 11/10/2017 PROCEDURE Right thoracentesis. PREOPERATIVE DIAGNOSIS Right pleural effusion. ANESTHESIA 1% Xylocaine. SURGEON Dr. Apple Yee PROCEDURE AND FINDINGS The patient's right posterior back was prepped with chlorhexidine solution following which sterile drapes were applied. 1% Xylocaine was then injected in the intercostal space in the posterior axillary line after which a small incision was made with a scalpel blade. Following this a 14-gauge catheter was inserted into the pleural spaces; this was connected to a vacuum bottle and approximately 600 cc of serosanguineous fluid was aspirated at which time the flow stopped. The patient tolerated the procedure well. The fluid will be sent for cultures and cytology. Stefanie Yee MD JVD/SSB /5:58 PM /9:20 AM
[2017-11-11] MEDS: LOPERAMIDE HCL 2 MG CAP PO PRN (09:59)
[2017-11-11] MEDS ORDERED: SODIUM CHLORID 0.9% 500 ML INJ 500 ML IV ONE (11:45)
[2017-11-11 14:48] LABS: AUTOMATED NEUTROPHIL # 11.3 TH/MM3 (1.8-7.7); BASOPHIL % 0.1 % (0.0-2.0); EOSINOPHIL % 0.2 % (0.0-4.0); HEMATOCRIT 30.9 % (35.0-46.0); HEMOGLOBIN 10.4 GM/DL (11.6-15.3); LYMPH % 4.7 % (9.0-44.0); LYMPHOCYTE # 0.6 TH/MM3 (1.0-4.8); MEAN CORPUSCULAR HEMOGLOBIN 34.9 PG (27.0-34.0); MEAN CORPUSCULAR HGB CONC 33.6 % (32.0-36.0); MEAN PLATELET VOLUME 6.9 FL (7.0-11.0); MONO % 8.5 % (0.0-8.0); MONOCYTE # 1.1 TH/MM3 (0-0.9); NEUT % 86.5 % (16.0-70.0); PLATELET COUNT 446 TH/MM3 (150-450); RED BLOOD COUNT 2.97 MIL/MM3 (4.00-5.30); RED CELL DISTRIBUTION WIDTH 15.6 % (11.6-17.2); WHITE BLOOD COUNT 13.1 TH/MM3 (4.0-11.0)
[2017-11-11 15:01] LABS: BICARBONATE 30.7 MEQ/L (21.0-32.0); CALCIUM 6.8 MG/DL (8.5-10.1); CREATININE 0.66 MG/DL (0.50-1.00)
[2017-11-11] MEDS ORDERED: XELJANZ 11 MG PO SCH (15:15)
[2017-11-11 15:26] LABS: CALCIUM-PROTEIN CORRECTED 7.8 MG/DL (8.5-10.1); TOTAL PROTEIN 5.1 GM/DL (6.4-8.2)
[2017-11-11 15:34] LABS: BANDS 4 % (0-6); LYMPHOCYTES 3 % (9-44); METAMYELOCYTES 1 % (0-1); MONOCYTES 3 % (0-8); NEUTROPHIL # MANUAL DIFF 12.3 TH/MM3 (1.8-7.7); POLYS (SEG NEUTROPHILS) 89 % (16-70)
[2017-11-11] MEDS ORDERED: TOFACITINIB 11 MG PO ONE (16:00)
[2017-11-11] MEDS ORDERED: oxyCODONE/ACETAMINOPHEN 5 MG/325 MG TAB PO PRN (16:00)
[2017-11-11] MEDS ORDERED: TOFACITINIB 11 MG PO SCH (16:00)
[2017-11-11] MEDS ORDERED: NALOXONE HCL 0.4 MG/ML AMP IV PUSH PRN (16:00)
--- NOTE | 2017-11-11 16:06 | HHI.PR ---
Subjective Remarks Patient reports that she wants restart her rheumatoid arthritis medications. She states that her pain is worse due to being off these medications. She reports no active shortness of breath. She feels she is not ready to go home Objective Vitals Vital Signs Date Time Temp Pulse Resp B/P (MAP) Pulse Ox O2 Delivery O2 Flow Rate FiO2 11/11/17 12:00 72 11/11/17 12:00 98.4 80 18 86/54 (65) 95 11/11/17 08:00 97.6 67 17 103/59 (74) 95 11/11/17 08:00 68 11/11/17 05:44 22 11/11/17 04:21 20 11/11/17 04:00 99.0 74 22 109/64 (79) 95 11/11/17 00:00 91 11/11/17 00:00 101.5 87 22 101/56 (71) 95 11/10/17 20:00 98.7 85 22 96/52 (67) 98 11/10/17 16:00 98.6 74 18 149/83 (105) 96 I/O 11/10/17 11/10/17 11/10/17 11/11/17 11/11/17 11/11/17 07:00 15:00 23:00 07:00 15:00 23:00 Intake Total 360 ml 300 ml 720 ml 50 ml 600 ml Balance 360 ml 300 ml 720 ml 50 ml 600 ml Intake Oral 360 ml 0 ml 720 ml IV Total 300 ml 50 ml 600 ml # Voids 3 7 3 # Bowel Movements 0 4 0 Result Diagram: 11/11/17 1404 11/11/17 1404 Other Results Microbiology Date/Time Source Procedure Growth Status 11/05/17 06:40 Blood Peripheral Aerobic Blood Culture - Final NO GROWTH IN 5 DAYS Complete 11/05/17 06:40 Blood Peripheral Anaerobic Blood Culture - Final NO GROWTH IN 5 DAYS Complete 11/10/17 17:30 Fluid Pleural Fluid Fungal Smear - Final NO FUNGAL ELEMENTS SEEN. Resulted 11/10/17 17:30 Fluid Pleural Fluid Fungal Culture Pending Resulted 11/05/17 11:56 Bronchial Washings Right Lower Lobe Fungal Smear - Final NO FUNGAL ELEMENTS SEEN. Resulted 11/05/17 11:56 Bronchial Washings Right Lower Lobe Fungal Culture - Preliminary Resulted 11/04/17 05:43 Urine Catheterized Urine Urine Culture - Final NO GROWTH IN 48 HOURS. Complete Objective Remarks GENERAL: This is a well-nourished, well-developed patient, in no apparent distress. CARDIOVASCULAR: Regular rate and rhythm RESPIRATORY: Slightly diminished breath sounds right base GASTROINTESTINAL: Abdomen soft, non-tender, nondistended. Normal active bowel sounds MUSCULOSKELETAL: Extremities without clubbing, cyanosis, or edema. NEURO: Alert & Oriented x4 to person, place, time, situation. Moves all ext x4 A/P Problem List: (1) Bilateral pneumonia ICD Code: J18.9 - Pneumonia, unspecified organism Status: Acute (2) Bronchial obstruction ICD Code: J98.09 - Other diseases of bronchus, not elsewhere classified Status: Acute (3) Rheumatoid arthritis ICD Code: M06.9 - Rheumatoid arthritis Status: Chronic (4) Immunosuppression ICD Code: D89.9 - Immunosuppression Status: Chronic (5) Encephalopathy ICD Code: G93.40 - Encephalopathy Status: Resolved Assessment and Plan Bilateral pneumonia; rule out also aspiration pneumonitis Continue Zosyn and Azithromycin coverage for possible aspiration Oxygen walk test demonstrated desaturation to 89% with light activity previously on 11/08; repeat another walk test today to review. Status post right Thoracentesis yesterday with Dr. Bentley- await cultures and cytology ID consult appreciated and continue with Zithromax and Zosyn, ID discontinue Flagyl at this point. Pulmonary Yeast Likely due to immunosuppressive therapy for Lupus ID consulted Right-sided bronchial obstruction Pulmonology following Status post bronchoscopy 11/05/17 Wean off oxygen as tolerated Anxiety/depression PRN xanax Rheumatoid arthritis, Lupus, Avascular necrosis Immunocompromise related to treatment Recommend she skip immune modulating medications until treatment for PNA is complete Increase pain dosage to manage pain due to holding immune modulating medications. Methotrexate also on hold. Currently on low-dose prednisone DVT prophylaxisSCDs, Lovenox Problem Qualifiers (1) Bilateral pneumonia: Ibeth Membreno MD Nov 11, 2017 16:06
[2017-11-11] MEDS: ENOXAPARIN SODIUM 40 MG/0.4 ML SYRINGE SQ SCH (17:11)
--- NOTE | 2017-11-11 17:37 | MB ---
cc: DOROTEO WEINBERG MD DATE OF CONSULTATION 11/11/[address] Carrasco. REASON FOR CONSULTATION A 62-year-old patient with lupus and immunosuppressive therapy, has pneumonia that he is clinically improved but worse on chest x-ray. Yeast found deep in her lungs. Please review and recommend treatment. HISTORY OF PRESENT ILLNESS This is a 62-year-old white female who was admitted to the hospital on 11/04. The patient was brought to the emergency room after her partner found her to have altered mental status and she was having shallow respirations and sweats. The patient's male partner who is currently in the room mentioned to me that she was sleeping most of the day for about four days prior to being brought to the emergency department. The patient notes that she also had diarrhea. The patient tells me that she does not recall some of the events on some of the days prior to being hospitalized. When she was in the emergency department, her heart rate was 102, respiratory rate was 18 and white count was 4.7. She was felt to possibly have aspirated on opiates which she had taken for pain. CT of the thorax showed a right middle lobe pneumonia with consolidation of the entire right lower lobe and non-visualization of the lower lobe bronchus at its origin suggesting an obstructing central lesion. Segmental consolidation of the right middle lobe and patchy areas of infiltrate in the left lower lobe were noted as well. No mediastinal adenopathy. The patient has history of lupus erythematosus as well as rheumatoid arthritis for which she has been taking medications including steroids. She is also on Xeljanz. She has been taking that medication once a day. She has not been given the medication since admission and she reports that her arthritis is worse and she is barely able to open up her right hand. Cultures were taken from bronch washing after bronchoscopy and came back showing E-coli which is fairly sensitive. The patient has been afebrile, except for one temperature of 101.5 degrees on 11/05/2017 and she had a temperature spike early this morning of 101.5 degrees. She denies chills. She denies nausea. The chest x-ray was repeated and it showed moderate right effusion. She went for a thoracentesis yesterday evening. The culture is pending. One of the cultures from the bronchoscopy washing showed yeast species not Cryptococcus. The patient states that she feels better. However, she continues to have spells of coughing and is producing mostly white phlegm. She notes pain in the right chest when she coughs. PAST MEDICAL HISTORY 1. Rheumatoid arthritis, 2. Lupus 3. Vascular necrosis 4. Osteoporosis, 5. Hypothyroidism, 6. Chronic back pain, 7. Cholecystectomy, 8. Breast augmentation surgery, 9. Bilateral shoulder replacement 10. Femur fracture repair. ALLERGIES ASPIRIN ACETAMINOPHEN SULFA MUSCLE RELAXERS AMITRIPTYLINE CARISOPRODOL CHLORDOXANONE CLOBENZEPRINE DICLOFEBNAC ESZOPICLONE ATORALAC FLURBIPROFEN HYDROMORPHONE IBUPROFEN INDOMETHACIN KETORALAC NAPROXEN OXAPROZIN TRAMADOL MEDICATIONS 1. Piperacillin/tazobactam 2. Azithromycin 3. Percocet five 4. Neurontin 5. Ambien 6. Effexor 7. Synthroid. 8. Folate 9. Xanax 10. Imodium 11. Metronidazole 12. Deltasone. SOCIAL HISTORY Occasional tobacco. Positive alcohol, one glass of wine a day. Denies illicit drugs. FAMILY HISTORY Noncontributory. REVIEW OF SYSTEMS GENERAL: Denies chills. HEAD, EARS, NOSE AND THROAT: Denies difficulty with lesions. Denies nosebleed. Denies difficulty swallowing or thrush. Denies neck pain. CARDIOVASCULAR: Denies palpitation. RESPIRATORY: Positive for coughing. Denies shortness of breath. GASTROINTESTINAL: Positive for diarrhea. GENITOURINARY: Denies dysuria HEMATOPOIETIC: Denies easy bruising or bleeding. MUSCULOSKELETAL: Significant for weakness of the upper extremities and decreased strength at the upper extremities. INTEGUMENTARY: Denies skin rash or itching. NEUROLOGIC: Problems with tremulousness of the upper extremities PSYCHIATRIC: Denies mood changes. PHYSICAL EXAMINATION GENERAL: This is a frail appearing female who is in no acute distress. She is awake, alert and oriented. VITAL SIGNS: Temperature 98.4, BP 86/54, heart rate 18, respirations 18. HEENT: Head atraumatic. Extraocular movements grossly intact. No icterus. No conjunctival erythema. Oropharynx moist mucosa. No lesions. No thrush. NECK: Supple without adenopathy. LUNGS: Coarse breath sounds at the right base. Decreased breath sounds at the left side. HEART: Regular S1, S2 without audible murmurs. ABDOMEN: Bowel sounds present, soft, no tenderness appreciated. RECTAL: Not performed. EXTREMITIES: Diffuse muscle wasting. The strength is decreased on the right hand. SKIN: No rash. NEUROLOGIC: No gross focal findings. PSYCHIATRIC: The patient is calm and cooperative. LABORATORY DATA WBC 13.6, platelets 286, 90% neutrophils, hemoglobin 9.0, differential includes 16% bands. Creatinine 0.68, BUN eight, sodium 141, AST 55, ALT 42, alk phos 91. Pleural fluid culture pending. IMPRESSION 1. Pneumonia. Positive culture with E-coli, likely secondary to aspiration. 2. Fever despite antibiotic therapy. New culture from thoracentesis pending. 3. Leukocytosis. The pathology sample from the bronchoscopy revealed right lower lobe of the lung having vegetable matter, stature granules and adipose tissue consistent with aspiration. Evaluation of the bronch washing revealed yeast species not Cryptococcus. The gram stain, however, showed no fungal elements. This is likely just contamination from aspiration process. RECOMMENDATIONS 1. Continue Piperacillin 2. Continue azithromycin 3. Discontinue Flagyl 4. Monitor the pleural fluid culture 5. Monitor the temperature and white blood cell count. The patient has been immunosuppressed from treatment for lupus and rheumatoid arthritis. However, at this time I think we can resume her Xeljanz since she is having a very difficult time with arthritis and I do not think that it is likely to impact upon her current treatment for infection. I think she should be afebrile for 48 hours before discharge, since she has very advanced lupus and rheumatoid arthritis requiring immunosuppression. If she has temperature spikes again, blood culture should be obtained as well. I will monitor her progress with you and make further recommendations on followup if necessary. Doroteo Weinberg MD FD/ /2:55 PM /5:03 PM
[2017-11-11] MEDS: oxyCODONE/ACETAMINOPHEN 10 MG/325 MG TAB PO PRN ×2 (17:55→22:06)
--- NOTE | 2017-11-11 20:08 | HHI.PR ---
Subjective Remarks Feels much Better. after thoracentesis. Has loose stools. No fever.On her RA meds now. Bronch wash is negative for AFB but E Coli noted Pleural fluid result pending Objective Vital Signs Date Time Temp Pulse Resp B/P (MAP) Pulse Ox O2 Delivery O2 Flow Rate FiO2 11/11/17 19:05 96 11/11/17 16:00 98.4 69 16 121/70 (87) 98 11/11/17 12:00 72 11/11/17 12:00 98.4 80 18 86/54 (65) 95 11/11/17 08:00 97.6 67 17 103/59 (74) 95 11/11/17 08:00 68 11/11/17 05:44 22 11/11/17 04:21 20 11/11/17 04:00 99.0 74 22 109/64 (79) 95 11/11/17 00:00 91 11/11/17 00:00 101.5 87 22 101/56 (71) 95 I/O 11/10/17 11/10/17 11/10/17 11/11/17 11/11/17 11/11/17 07:00 15:00 23:00 07:00 15:00 23:00 Intake Total 360 ml 300 ml 720 ml 50 ml 1800 ml Balance 360 ml 300 ml 720 ml 50 ml 1800 ml Intake Oral 360 ml 0 ml 720 ml 1200 ml IV Total 300 ml 50 ml 600 ml # Voids 3 7 3 6 # Bowel Movements 0 4 0 4 Result Diagram: 11/11/17 1404 11/11/17 1404 Objective Remarks This thinly built middle-aged white female who is alert and pale in no acute distress. HEENT: Head normocephalic. Pupils reactive and equal. Tongue is moist. Throat is mildly injected. Ears have no inflammation. NECK: No bruits or thyroid enlargement or lymphadenopathy. CHEST: Equal movements with distant breath sounds. Wheezes over both lung caraballo and breath sounds markedly diminished over the right lower chest. crackles on the right base with scattered wheezes heard. HEART: The heart sounds are irregular S1-S2. No murmur. No S3. ABDOMEN: Soft and benign. No masses or organomegaly. EXTREMITIES: No lesions or edema. Normal reflexes. Reflexes 1+. The patient does have multiple joint deformities of the extremities. NEUROLOGIC: No focal deficits identified. The patient is alert and oriented. Assessment and Plan Assessment and Plan IMPRESSION 1. Right lower lobe atelectasis with pneumonia and possible obstructive pneumonitis. 2. History of rheumatoid arthritis. 3. Sepsis resolving 4. Systemic lupus 5. Probable obstructive airways disease. 6. Aspiration Pneumonia Plan : 1. Continue antibiotics , Zosyn/Zithro and Flagyl 2. Nebs qid , duoneb. 3. Mucomyst 2 CC 20 % solution qid nebs 4. PFT with Broncho 5. Chest Xray in am 6. CPT and Postural drainage 7. Aspiration Precaution. Vishnu Yee MD Nov 11, 2017 20:08
[2017-11-11] MEDS: AZITHROMYCIN INJ 500 MG in SODIUM CHLOR 0.9% 250 ML INJ 250 ML IV SCH (21:32)
[2017-11-12] VITALS (8 sets, daily range): BP systolic 98–133; BP diastolic 51–78; PULSE 65–81; RESP 16–18; TEMP 96.6–97.8; O2SAT 96–98
[2017-11-12] MEDS: ALPRAZolam 0.5 MG TAB PO SCH ×4 (00:24→17:46)
[2017-11-12] MEDS: oxyCODONE/ACETAMINOPHEN 10 MG/325 MG TAB PO PRN ×4 (05:29→21:37)
[2017-11-12] MEDS: LEVOTHYROXINE SODIUM 50 MCG TAB PO SCH (05:30)
[2017-11-12] MEDS: PIPERACIL-TAZO 3.375 GM PREMIX 50 ML IV SCH ×2 (05:33→10:33)
[2017-11-12] MEDS: SODIUM CHLORIDE 0.9% FLUSH 10 ML FLUSH IV FLUSH SCH ×2 (10:32→21:40)
[2017-11-12] MEDS: LOPERAMIDE HCL 2 MG CAP PO PRN (10:33)
[2017-11-12] MEDS: predniSONE 5 MG TAB PO SCH ×2 (10:34→21:37)
[2017-11-12] MEDS: GABAPENTIN 400 MG CAP PO SCH ×3 (10:34→17:46)
[2017-11-12] MEDS: FOLIC ACID 1 MG TAB PO SCH (10:35)
[2017-11-12] MEDS: VENLAFAXINE HCL XR 75 MG CAP PO SCH (10:35)
[2017-11-12] MEDS: TOFACITINIB 11 MG PO SCH (10:35)
--- NOTE | 2017-11-12 12:11 | HHI.PR ---
Subjective Remarks Patient is doing doing much better. No shortness of breath. Her hand and joint pain much better after restarting Xeljanz Objective Vitals Vital Signs Date Time Temp Pulse Resp B/P (MAP) Pulse Ox O2 Delivery O2 Flow Rate FiO2 11/12/17 07:58 97.3 65 16 133/61 (85) 96 11/12/17 04:53 97.7 71 16 132/72 (92) 98 11/12/17 00:00 97.1 81 16 98/60 (73) 96 11/11/17 20:00 98.2 76 16 93/51 (65) 95 11/11/17 19:05 96 11/11/17 16:00 98.4 69 16 121/70 (87) 98 I/O 11/11/17 11/11/17 11/11/17 11/12/17 11/12/17 11/12/17 06:59 14:59 22:59 06:59 14:59 22:59 Intake Total 720 ml 50 ml 1800 ml 50 ml Balance 720 ml 50 ml 1800 ml 50 ml Intake Oral 720 ml 1200 ml IV Total 50 ml 600 ml 50 ml # Voids 3 6 6 # Bowel Movements 0 4 Result Diagram: 11/11/17 1404 11/11/17 1404 Other Results Microbiology Date/Time Source Procedure Growth Status 11/05/17 06:40 Blood Peripheral Aerobic Blood Culture - Final NO GROWTH IN 5 DAYS Complete 11/05/17 06:40 Blood Peripheral Anaerobic Blood Culture - Final NO GROWTH IN 5 DAYS Complete 11/10/17 17:30 Fluid Pleural Fluid Fungal Smear - Final NO FUNGAL ELEMENTS SEEN. Resulted 11/10/17 17:30 Fluid Pleural Fluid Fungal Culture Pending Resulted 11/05/17 11:56 Bronchial Washings Right Lower Lobe Fungal Smear - Final NO FUNGAL ELEMENTS SEEN. Resulted 11/05/17 11:56 Bronchial Washings Right Lower Lobe Fungal Culture - Preliminary Resulted 11/04/17 05:43 Urine Catheterized Urine Urine Culture - Final NO GROWTH IN 48 HOURS. Complete Objective Remarks GENERAL: This is a well-nourished, well-developed patient, in no apparent distress. CARDIOVASCULAR: Regular rate and rhythm RESPIRATORY: Relatively clear to auscultation bilaterally GASTROINTESTINAL: Abdomen soft, non-tender, nondistended. Normal active bowel sounds MUSCULOSKELETAL: Extremities without clubbing, cyanosis, or edema. NEURO: Alert & Oriented x4 to person, place, time, situation. Moves all ext x4 A/P Problem List: (1) Bilateral pneumonia ICD Code: J18.9 - Pneumonia, unspecified organism Status: Acute (2) Bronchial obstruction ICD Code: J98.09 - Other diseases of bronchus, not elsewhere classified Status: Acute (3) Rheumatoid arthritis ICD Code: M06.9 - Rheumatoid arthritis Status: Chronic (4) Immunosuppression ICD Code: D89.9 - Immunosuppression Status: Chronic (5) Encephalopathy ICD Code: G93.40 - Encephalopathy Status: Resolved Assessment and Plan Bilateral pneumonia; likely aspiration pneumonitis with Escherichia coli with a history of being immunocompromised due to her chronic medications for rheumatoid arthritis Continue Zosyn and Azithromycin coverage for possible aspiration from Escherichia coli from bronchoscopy washings cultures Oxygen walk test demonstrated desaturation to 89% with light activity previously on 11/08; repeat another walk test 11/11 showed 96% room air Status post right Thoracentesis 11/[address] Bentley- await final cultures and cytology ID consult appreciated and continue with Zithromax and Zosyn, ID discontinue Flagyl at this point. Will transition over to Augmentin for discharge planning in the morning if patient remains afebrile. ID had recommended afebrile for 48 hours prior to discharge Yeast on chronic washings Likely a contaminant per infectious disease Right-sided bronchial obstruction Pulmonology following Status post bronchoscopy 11/05/17 Weaned off oxygen as tolerated Anxiety/depression PRN xanax Rheumatoid arthritis, Lupus, Avascular necrosis Immunocompromise related to treatment Due to her continued worsening pain, ID has felt she can restart her immune modulating medications; I recommend still holding Methotrexate. Currently on low-dose prednisone DVT prophylaxisSCDs, Lovenox Discharge Planning Discharge in the morning if patient remains afebrile with follow-up with pulmonary and primary care physician. Problem Qualifiers (1) Bilateral pneumonia: Ibeth Membreno MD Nov 12, 2017 12:11
[2017-11-12] MEDS ORDERED: ALPR.5 PO (12:27)
--- NOTE | 2017-11-12 12:37 | HHI.DS ---
Discharge Summary Admission Date Nov 04, 2017 at 06:45 Discharge Date: Nov 13, 2017 Admitting Diagnosis Pneumonia, R lower Bronchus Obstruction (1) Acute respiratory failure ICD Code: J96.00 - Acute respiratory failure Diagnosis: Principal Status: Resolved (2) Bilateral pneumonia ICD Code: J18.9 - Pneumonia, unspecified organism Diagnosis: Principal Status: Resolved (3) Bronchial obstruction ICD Code: J98.09 - Other diseases of bronchus, not elsewhere classified Diagnosis: Secondary Status: Resolved (4) Rheumatoid arthritis ICD Code: M06.9 - Rheumatoid arthritis Diagnosis: Secondary Status: Chronic (5) Immunosuppression ICD Code: D89.9 - Immunosuppression Diagnosis: Secondary Status: Chronic (6) Encephalopathy ICD Code: G93.40 - Encephalopathy Diagnosis: Secondary Status: Resolved Procedures 11/10 right Thoracentesis 11/05 Bronchoscopy Brief History - From Admission Mrs. Eugene is a 62-year-old female. At baseline she has rheumatoid arthritis and lupus and takes immunosuppressant. Recently she had been dealing with influenza and she says she's been ill from this and spending a lot of time in bed. She feels she's been in bed about 3 days but has difficulty recollecting the past few days. Her boyfriend called EMS and brought her to the emergency Department secondary to the degree of lethargy. Patient is on opioids that she denies ever using this other than what is prescribed and she says recently she has not been taking her opioids. Urine drug screen shows no evidence of opioids in her system. Etiology for her lethargy could be related to infection. Imaging shows evidence of bilateral pneumonia with possible pulmonary obstruction on the right lower lobe. She's been started on Zosyn. She may also had a seizure this could alter her mental status. However, currently no seizure activity witnessed. CT of brain is negative for any evidence of bleed or CVA. An ABG is pending. CBC/BMP: 11/11/17 1404 11/11/17 1404 Significant Findings Laboratory Tests Test 11/10/17 17:30 11/11/17 14:04 Pleural Fluid WBC 76 /MM3 (0-10) Pleural Fluid RBC 48 /MM3 (0-0) White Blood Count 13.1 TH/MM3 (4.0-11.0) Red Blood Count 2.97 MIL/MM3 (4.00-5.30) Hemoglobin 10.4 GM/DL (11.6-15.3) Hematocrit 30.9 % (35.0-46.0) Mean Corpuscular Volume 104.0 FL (80.0-100.0) Mean Corpuscular Hemoglobin 34.9 PG (27.0-34.0) Mean Platelet Volume 6.9 FL (7.0-11.0) Neutrophils (%) (Auto) 86.5 % (16.0-70.0) Lymphocytes (%) (Auto) 4.7 % (9.0-44.0) Monocytes (%) (Auto) 8.5 % (0.0-8.0) Neutrophils # (Auto) 11.3 TH/MM3 (1.8-7.7) Lymphocytes # (Auto) 0.6 TH/MM3 (1.0-4.8) Monocytes # (Auto) 1.1 TH/MM3 (0-0.9) Neutrophils % (Manual) 89 % (16-70) Lymphocytes % 3 % (9-44) Neutrophils # (Manual) 12.3 TH/MM3 (1.8-7.7) Random Glucose 121 MG/DL (74-106) Total Protein 5.1 GM/DL (6.4-8.2) Calcium Level 6.8 MG/DL (8.5-10.1) Protein Corrected Calcium 7.8 MG/DL (8.5-10.1) Imaging Last Impressions Chest X-Ray 11/10/17 0000 Signed Impressions: Service Date/Time: Friday, November 10, 2017 19:01 - CONCLUSION: 1. Small left pleural effusion. 2. Bibasilar patchiness consistent with probable atelectasis and/or pneumonia. Gualberto Tate MD Modified Barium Swallow 11/09/17 0000 Signed Impressions: Service Date/Time: Thursday, November 09, 2017 00:00 - CONCLUSION: Negative examination. Please see space pathology report Sterling Durant MD Chest Ultrasound 11/09/17 0000 Signed Impressions: Service Date/Time: Thursday, November 09, 2017 08:24 - CONCLUSION: 1. Small left pleural effusion with insufficient collection for thoracentesis. Therefore, no marking was performed. Victor Hugo Luna MD Head CT 11/04/17 0000 Signed Impressions: Service Date/Time: October 05:49 - CONCLUSION: 1. No acute findings in the brain on this noncontrast study. 2. Right maxillary sinus disease. Ambrose Richardson MD Chest CT 11/04/17 0000 Signed Impressions: Service Date/Time: October 05:46 - CONCLUSION: 1. Consolidation of the entire right lower lobe with nonvisualization of the lower lobe bronchus at its origin suggesting an obstructing central lesion. 2. Segmental consolidation in the right middle lobe and patchy areas of infiltrate in the left lower lobe. 3. No evidence of mediastinal adenopathy. Ambrose Richardson MD PE at Discharge GENERAL: This is a well-nourished, well-developed patient, in no apparent distress. CARDIOVASCULAR: Regular rate and rhythm RESPIRATORY: Relatively clear to auscultation bilaterally GASTROINTESTINAL: Abdomen soft, non-tender, nondistended. Normal active bowel sounds MUSCULOSKELETAL: Extremities without clubbing, cyanosis, or edema. NEURO: Alert & Oriented x4 to person, place, time, situation. Moves all ext x4 Hospital Course 62-year-old female was admitted for acute respiratory failure secondary to aspiration pneumonia with risk factors of underlying immunosuppression and compromise due to chronic renal modular and suppressive medication she takes for her history of rheumatoid arthritis. She was seen by pulmonary service and a bronchoscopy was obtained which cultures revealed Escherichia coli. She was placed on IV Zithromax and Zosyn with Flagyl. Her oxygen support was weaned during the hospitalization. Right Thoracentesis was also performed for her right pleural effusion to improve her respiratory status. Infectious disease was consulted who recommended IV Zosyn and continuation IV Zithromax. Infectious disease felt it was safe to continue with Xeljanz medication due to her increased complaints of arthritic pain. She was counseled not to restart her methotrexate until she completes her course of antibiotics. At this time, if she remains 48 hours afebrile from adjustment of IV antibiotics; she will be transitioned to oral Augmentin for discharge to home with outpatient follow-up with pulmonary, Dr. Riddle. Pt Condition on Discharge: Good Discharge Disposition: Discharge Home Discharge Instructions DIET: Follow Instructions for: As Tolerated, No Restrictions Activities you can perform: Regular-No Restrictions Follow up Referrals: PCP Follow-up Pulmonology - 2 Weeks with Vishnu Yee MD New Medications: Amoxicillin-Clavulanate (Augmentin) 875-125 Mg Tab 1 TAB PO BID for Infection, #10 TAB 0 Refills Alprazolam (Xanax) 0.5 Mg Tab 0.5 MG PO Q8HR PRN for ANXIETY, #15 TAB Continued Medications: Folic Acid (Folic Acid) 0.4 Mg Tab 1 MG PO DAILY for Nutritional Supplement, TAB 0 Refills Gabapentin (Gabapentin) 800 Mg Tab 800 MG PO TID, #90 TAB 0 Refills Levothyroxine (Levothyroxine) 50 Mcg Tab 50 MCG PO DAILY for Thyroid, #30 TAB 0 Refills Oxycodone-Acetaminophen (Oxycodone-Acetaminophen) 10-325 mg Tab 1 TAB PO Q6H PRN for PAIN, #60 TAB 0 Refills Prednisone (Prednisone) 5 Mg Tab 5 MG PO DAILY, TAB 0 Refills Tofacitinib ER (Xeljanz Xr) 11 Mg Tab 11 MG PO DAILY for Arthritis, #30 TAB 0 Refills Venlafaxine ER 24 HR (Venlafaxine ER 24 HR) 75 Mg Tab 75 MG PO DAILY, #30 TAB 0 Refills Discontinued Medications: Methotrexate (Antirheumatic) (Rasuvo) 25 Mg/0.5 Ml Inj WEEKLY Ibeth Membreno MD Nov 12, 2017 12:37
--- NOTE | 2017-11-12 12:59 | HHI.PR ---
Subjective Remarks Feels much Better. after thoracentesis. . No fever.On her RA meds now. Bronch wash is negative for AFB but E Coli noted Pleural fluid result negative. Objective Vital Signs Date Time Temp Pulse Resp B/P (MAP) Pulse Ox O2 Delivery O2 Flow Rate FiO2 11/12/17 12:28 97.1 74 16 104/51 (68) 98 11/12/17 08:00 66 11/12/17 07:58 97.3 65 16 133/61 (85) 96 11/12/17 04:53 97.7 71 16 132/72 (92) 98 11/12/17 00:00 97.1 81 16 98/60 (73) 96 11/11/17 20:00 98.2 76 16 93/51 (65) 95 11/11/17 19:05 96 11/11/17 16:00 98.4 69 16 121/70 (87) 98 I/O 11/11/17 11/11/17 11/11/17 11/12/17 11/12/17 11/12/17 07:00 15:00 23:00 07:00 15:00 23:00 Intake Total 720 ml 50 ml 1800 ml 50 ml Balance 720 ml 50 ml 1800 ml 50 ml Intake Oral 720 ml 1200 ml IV Total 50 ml 600 ml 50 ml # Voids 3 6 6 # Bowel Movements 0 4 Result Diagram: 11/11/17 1404 11/11/17 1404 Objective Remarks This thinly built middle-aged white female who is alert and pale in no acute distress. HEENT: Head normocephalic. Pupils reactive and equal. Tongue is moist. Throat is mildly injected. Ears have no inflammation. NECK: No bruits or thyroid enlargement or lymphadenopathy. CHEST: Equal movements with distant breath sounds. Occ Wheezes over both lung caraballo and breath sounds diminished over the right lower chest. crackles on the right base with scattered wheezes heard. HEART: The heart sounds are irregular S1-S2. No murmur. No S3. ABDOMEN: Soft and benign. No masses or organomegaly. EXTREMITIES: No lesions or edema. Normal reflexes. Joints deformed. Reflexes 1+. The patient does have multiple joint deformities of the extremities. NEUROLOGIC: No focal deficits identified. The patient is alert and oriented. Assessment and Plan Assessment and Plan IMPRESSION 1. Right lower lobe atelectasis with pneumonia and possible obstructive pneumonitis. 2. History of rheumatoid arthritis. 3. Sepsis resolving 4. Systemic lupus 5. Probable obstructive airways disease. 6. Aspiration Pneumonia Plan : 1. Continue antibiotics per ID 2. Nebs qid , duoneb.PRN 3. D/C Mucomyst 2 CC 4. Home when OK with ID 5. Chest Xray in am 6. CPT and Postural drainage 7. Will F/U as OP in 2 weeks Vishnu Yee MD Nov 12, 2017 12:59
[2017-11-12 13:19] LABS: AMYLASE BODY FLUID 17 U/L; AMYLASE BODY FLUID TYPE PLEURAL
--- NOTE | 2017-11-12 15:25 | HHI.IDPN ---
Note Infectious Disease Note Patient feels better. No SOB Notes pain at the site of thoracentesis at r. chest. Afebrile. Moving R hand better. Pleural fluid culture - no growth 48 hours. Brought to the emergency room with altered mental status and she was having shallow respirations and sweats. PAST MEDICAL HISTORY 1. Rheumatoid arthritis, 2. Lupus 3. Vascular necrosis 4. Osteoporosis, 5. Hypothyroidism, 6. Chronic back pain, 7. Cholecystectomy, 8. Breast augmentation surgery, 9. Bilateral shoulder replacement 10. Femur fracture repair. ALLERGIES ASPIRIN ACETAMINOPHEN SULFA MUSCLE RELAXERS AMITRIPTYLINE CARISOPRODOL CHLORDOXANONE CLOBENZEPRINE DICLOFEBNAC ESZOPICLONE ATORALAC FLURBIPROFEN HYDROMORPHONE IBUPROFEN INDOMETHACIN KETORALAC NAPROXEN OXAPROZIN TRAMADOL MEDICATIONS 1. Piperacillin/tazobactam 2. Azithromycin OBJECTIVE: Vital Signs Date Time Temp Pulse Resp B/P (MAP) Pulse Ox O2 Delivery O2 Flow Rate FiO2 11/12/17 12:28 97.1 74 16 104/51 (68) 98 11/12/17 08:00 66 11/12/17 07:58 97.3 65 16 133/61 (85) 96 11/12/17 04:53 97.7 71 16 132/72 (92) 98 11/12/17 00:00 97.1 81 16 98/60 (73) 96 11/11/17 20:00 98.2 76 16 93/51 (65) 95 11/11/17 19:05 96 11/11/17 16:00 98.4 69 16 121/70 (87) 98 Laboratory Tests Test 11/11/17 14:04 White Blood Count 13.1 TH/MM3 Red Blood Count 2.97 MIL/MM3 Hemoglobin 10.4 GM/DL Hematocrit 30.9 % Mean Corpuscular Volume 104.0 FL Mean Corpuscular Hemoglobin 34.9 PG Mean Corpuscular Hemoglobin Concent 33.6 % Red Cell Distribution Width 15.6 % Platelet Count 446 TH/MM3 Mean Platelet Volume 6.9 FL Neutrophils (%) (Auto) 86.5 % Lymphocytes (%) (Auto) 4.7 % Monocytes (%) (Auto) 8.5 % Eosinophils (%) (Auto) 0.2 % Basophils (%) (Auto) 0.1 % Neutrophils # (Auto) 11.3 TH/MM3 Lymphocytes # (Auto) 0.6 TH/MM3 Monocytes # (Auto) 1.1 TH/MM3 Eosinophils # (Auto) 0.0 TH/MM3 Basophils # (Auto) 0.0 TH/MM3 CBC Comment AUTO DIFF Differential Total Cells Counted 100 Neutrophils % (Manual) 89 % Band Neutrophils % 4 % Lymphocytes % 3 % Monocytes % 3 % Neutrophils # (Manual) 12.3 TH/MM3 Metamyelocytes 1 % Differential Comment FINAL DIFF MANUAL Atypical Lymphocytes % Platelet Estimate NORMAL Platelet Morphology Comment NORMAL Laboratory Tests Test 11/11/17 14:04 Blood Urea Nitrogen 8 MG/DL Creatinine 0.66 MG/DL Random Glucose 121 MG/DL Total Protein 5.1 GM/DL Calcium Level 6.8 MG/DL Sodium Level 138 MEQ/L Potassium Level 4.9 MEQ/L Chloride Level 102 MEQ/L Carbon Dioxide Level 30.7 MEQ/L Anion Gap 5 MEQ/L Estimat Glomerular Filtration Rate 91 ML/MIN Protein Corrected Calcium 7.8 MG/DL Microbiology Date/Time Source Procedure Growth Status 11/10/17 17:30 Fluid Pleural Fluid Fungal Smear - Final NO FUNGAL ELEMENTS SEEN. Resulted 11/10/17 17:30 Fluid Pleural Fluid Fungal Culture Pending Resulted 11/10/17 17:30 Fluid Pleural Fluid Acid Fast Stain - Final NO ACID FAST BACILLI SEEN Resulted 11/10/17 17:30 Fluid Pleural Fluid Mycobacterial Culture Pending Resulted 11/10/17 17:30 Fluid Pleural Fluid Gram Stain - Final Resulted 11/10/17 17:30 Fluid Pleural Fluid Body Fluid Culture - Preliminary NO GROWTH IN 48 HOURS. Resulted IMAGING: Chest X-Ray 11/10/17 0000 Signed Impressions: Service Date/Time: Friday, November 10, 2017 19:01 - CONCLUSION: 1. Small left pleural effusion. 2. Bibasilar patchiness consistent with probable atelectasis and/or pneumonia. Gualberto Tate MD Modified Barium Swallow 11/09/17 0000 Signed Impressions: Service Date/Time: Thursday, November 09, 2017 00:00 - CONCLUSION: Negative examination. Please see space pathology report Sterling Durant MD Chest Ultrasound 11/09/17 0000 Signed Impressions: Service Date/Time: Thursday, November 09, 2017 08:24 - CONCLUSION: 1. Small left pleural effusion with insufficient collection for thoracentesis. Therefore, no marking was performed. Victor Hugo Luna MD Head CT 11/04/17 0000 Signed Impressions: Service Date/Time: October 05:49 - CONCLUSION: 1. No acute findings in the brain on this noncontrast study. 2. Right maxillary sinus disease. Ambrose Richardson MD Chest CT 11/04/17 0000 Signed Impressions: Service Date/Time: October 05:46 - CONCLUSION: 1. Consolidation of the entire right lower lobe with nonvisualization of the lower lobe bronchus at its origin suggesting an obstructing central lesion. 2. Segmental consolidation in the right middle lobe and patchy areas of infiltrate in the left lower lobe. 3. No evidence of mediastinal adenopathy. Ambrose Richardson MD PHYSICAL EXAMINATION GENERAL: This is a frail appearing female who is in no acute distress. She is awake, alert and oriented. HEENT: No icterus. No conjunctival erythema. Oropharynx moist mucosa. No lesions. No thrush. NECK: Supple without adenopathy. LUNGS: Clear breath sounds. HEART: Regular S1, S2 without audible murmurs. ABDOMEN: Bowel sounds present, soft, no tenderness appreciated. EXTREMITIES: Diffuse muscle wasting. The strength is improved at the r. hand. SKIN: No rash. NEUROLOGIC: No gross focal findings. PSYCHIATRIC: Calm and cooperative. IMPRESSION 1. Pneumonia. Positive culture with E-coli, likely secondary to aspiration. 2. Fever improved. 3. Leukocytosis. RECOMMENDATIONS 1. Stop Piperacillin 2. Stop azithromycin 3. Begin PO Cefuroxime. 4. Monitor the pleural fluid culture If no fever overnight , she can be discharged on PO Cefuroxime 500mg bid x 10 days. Follow up with Raúl Arteaga MD Nov 12, 2017 15:25
[2017-11-12] MEDS: ENOXAPARIN SODIUM 40 MG/0.4 ML SYRINGE SQ SCH (17:47)
[2017-11-12] MEDS: CEFUROXIME AXETIL 500 MG TAB PO SCH (21:37)
[2017-11-12] MEDS: ZOLPIDEM TARTRATE 5 MG TAB PO PRN (22:36)
[2017-11-13] VITALS: BP 140/85; PULSE 65; RESP 18; TEMP 97.4; O2SAT 97
[2017-11-13 04:24] VITALS: BP 150/80; PULSE 66; RESP 18; TEMP 97.3; O2SAT 93
[2017-11-13] MEDS: LEVOTHYROXINE SODIUM 50 MCG TAB PO SCH (06:03)
[2017-11-13] MEDS: ALPRAZolam 0.5 MG TAB PO SCH ×3 (06:04→12:14)
[2017-11-13 08:00] VITALS: BP 134/74; PULSE 72; RESP 16; TEMP 98.8; O2SAT 97
[2017-11-13] MEDS: GABAPENTIN 400 MG CAP PO SCH ×2 (09:57→12:14)
[2017-11-13] MEDS: FOLIC ACID 1 MG TAB PO SCH (09:57)
[2017-11-13] MEDS: CEFUROXIME AXETIL 500 MG TAB PO SCH (09:58)
[2017-11-13] MEDS: TOFACITINIB 11 MG PO SCH (09:58)
[2017-11-13] MEDS: VENLAFAXINE HCL XR 75 MG CAP PO SCH (09:58)
[2017-11-13] MEDS: predniSONE 5 MG TAB PO SCH (09:58)
[2017-11-13] MEDS: SODIUM CHLORIDE 0.9% FLUSH 10 ML FLUSH IV FLUSH SCH (09:59)
[2017-11-13] MEDS: oxyCODONE/ACETAMINOPHEN 10 MG/325 MG TAB PO PRN (10:00)
[2017-11-13 10:53] LABS: AUTOMATED NEUTROPHIL # 8.6 TH/MM3 (1.8-7.7); BASOPHIL % 0.2 % (0.0-2.0); EOSINOPHIL # 0.1 TH/MM3 (0-0.4); EOSINOPHIL % 0.4 % (0.0-4.0); HEMATOCRIT 32.2 % (35.0-46.0); HEMOGLOBIN 10.8 GM/DL (11.6-15.3); LYMPH % 16.8 % (9.0-44.0); MEAN CELL VOLUME 104.4 FL (80.0-100.0); MEAN CORPUSCULAR HGB CONC 33.6 % (32.0-36.0); MEAN PLATELET VOLUME 6.9 FL (7.0-11.0); MONO % 8.9 % (0.0-8.0); NEUT % 73.7 % (16.0-70.0); PLATELET COUNT 488 TH/MM3 (150-450); RED BLOOD COUNT 3.08 MIL/MM3 (4.00-5.30); RED CELL DISTRIBUTION WIDTH 15.9 % (11.6-17.2); WHITE BLOOD COUNT 11.7 TH/MM3 (4.0-11.0)
[2017-11-13 11:32] LABS: ALBUMIN 2.5 GM/DL (3.4-5.0); ALKALINE PHOSPHATASE 77 U/L (45-117); ALT (GPT) 21 U/L (10-53); AST (GOT) 23 U/L (15-37); BICARBONATE 30.6 MEQ/L (21.0-32.0); BLOOD UREA NITROGEN 7 MG/DL (7-18); CALCIUM 8.1 MG/DL (8.5-10.1); CHLORIDE 103 MEQ/L (98-107); CREATININE 0.64 MG/DL (0.50-1.00); FREE T4 0.95 NG/DL (0.76-1.46); GLOMERULAR FILTRATION RATE 94 ML/MIN (>89); GLUCOSE,RANDOM 106 MG/DL (74-106); MAGNESIUM 1.9 MG/DL (1.5-2.5); PHOSPHORUS 2.6 MG/DL (2.5-4.9); SODIUM (NA) 139 MEQ/L (136-145); TOTAL BILIRUBIN ADULT 0.1 MG/DL (0.2-1.0); TOTAL PROTEIN 5.7 GM/DL (6.4-8.2)
--- NOTE | 2017-11-13 11:38 | HHI.PR ---
Subjective Remarks 2-2 Patient is doing doing much better. No shortness of breath. Her hand and joint pain much better after restarting Xeljanz 2-3 patient has remained afebrile. Has been cleared by infectious disease for discharge has been cleared by pulmonary for discharge, and SHE can be discharged to home later today. She has not had anymore fevers. Objective Vitals Vital Signs Date Time Temp Pulse Resp B/P (MAP) Pulse Ox O2 Delivery O2 Flow Rate FiO2 11/13/17 08:00 98.8 72 16 134/74 (94) 97 11/13/17 04:24 97.3 66 18 150/80 (103) 93 11/13/17 00:00 97.4 65 18 140/85 (103) 97 11/12/17 20:00 96.6 78 18 118/78 (91) 98 11/12/17 17:15 98 21 11/12/17 16:00 97.8 75 17 107/65 (79) 97 11/12/17 12:28 97.1 74 16 104/51 (68) 98 I/O 11/12/17 11/12/17 11/12/17 11/13/17 11/13/17 11/13/17 07:00 15:00 23:00 07:00 15:00 23:00 Intake Total 50 ml 840 ml Balance 50 ml 840 ml Intake Oral 840 ml IV Total 50 ml # Voids 6 5 2 # Bowel Movements 3 Result Diagram: 11/13/17 1032 11/13/17 1032 Other Results Laboratory Tests Test 11/10/17 17:30 11/11/17 14:04 11/13/17 10:32 Body Fluid Amylase Source PLEURAL Body Fluid Amylase 17 U/L Pleural Fluid pH 8.5 Pleural Fluid WBC 76 /MM3 Pleural Fluid RBC 48 /MM3 Pleural Fluid Neutrophils 25 % Pleural Fluid Lymphocytes 50 % Pleural Fluid Histiocytes 17 % Pleural Fluid Mesothelial Cells 8 % Pleural Fluid Comment Pleural Fluid Total Protein 1.6 GM/DL Pleural Fluid LDH 172 U/L Pleural Fluid Glucose 88 MG/DL White Blood Count 13.1 TH/MM3 11.7 TH/MM3 Red Blood Count 2.97 MIL/MM3 3.08 MIL/MM3 Hemoglobin 10.4 GM/DL 10.8 GM/DL Hematocrit 30.9 % 32.2 % Mean Corpuscular Volume 104.0 FL 104.4 FL Mean Corpuscular Hemoglobin 34.9 PG 35.0 PG Mean Corpuscular Hemoglobin Concent 33.6 % 33.6 % Red Cell Distribution Width 15.6 % 15.9 % Platelet Count 446 TH/MM3 488 TH/MM3 Mean Platelet Volume 6.9 FL 6.9 FL Neutrophils (%) (Auto) 86.5 % 73.7 % Lymphocytes (%) (Auto) 4.7 % 16.8 % Monocytes (%) (Auto) 8.5 % 8.9 % Eosinophils (%) (Auto) 0.2 % 0.4 % Basophils (%) (Auto) 0.1 % 0.2 % Neutrophils # (Auto) 11.3 TH/MM3 8.6 TH/MM3 Lymphocytes # (Auto) 0.6 TH/MM3 2.0 TH/MM3 Monocytes # (Auto) 1.1 TH/MM3 1.0 TH/MM3 Eosinophils # (Auto) 0.0 TH/MM3 0.1 TH/MM3 Basophils # (Auto) 0.0 TH/MM3 0.0 TH/MM3 CBC Comment AUTO DIFF AUTO DIFF Differential Total Cells Counted 100 Neutrophils % (Manual) 89 % Band Neutrophils % 4 % Lymphocytes % 3 % Monocytes % 3 % Neutrophils # (Manual) 12.3 TH/MM3 Metamyelocytes 1 % Differential Comment FINAL DIFF MANUAL Atypical Lymphocytes % Platelet Estimate NORMAL Platelet Morphology Comment NORMAL Blood Urea Nitrogen 8 MG/DL 7 MG/DL Creatinine 0.66 MG/DL 0.64 MG/DL Random Glucose 121 MG/DL 106 MG/DL Total Protein 5.1 GM/DL 5.7 GM/DL Calcium Level 6.8 MG/DL 8.1 MG/DL Sodium Level 138 MEQ/L 139 MEQ/L Potassium Level 4.9 MEQ/L 4.0 MEQ/L Chloride Level 102 MEQ/L 103 MEQ/L Carbon Dioxide Level 30.7 MEQ/L 30.6 MEQ/L Anion Gap 5 MEQ/L 5 MEQ/L Estimat Glomerular Filtration Rate 91 ML/MIN 94 ML/MIN Protein Corrected Calcium 7.8 MG/DL Albumin 2.5 GM/DL Phosphorus Level 2.6 MG/DL Magnesium Level 1.9 MG/DL Alkaline Phosphatase 77 U/L Aspartate Amino Transf (AST/SGOT) 23 U/L Alanine Aminotransferase (ALT/SGPT) 21 U/L Total Bilirubin 0.1 MG/DL Free Thyroxine 0.95 NG/DL Thyroid Stimulating Hormone 3rd Gen 1.140 uIU/ML Imaging Last Impressions Chest X-Ray 11/10/17 0000 Signed Impressions: Service Date/Time: Friday, November 10, 2017 19:01 - CONCLUSION: 1. Small left pleural effusion. 2. Bibasilar patchiness consistent with probable atelectasis and/or pneumonia. Gualberto Tate MD Modified Barium Swallow 11/09/17 0000 Signed Impressions: Service Date/Time: Thursday, November 09, 2017 00:00 - CONCLUSION: Negative examination. Please see space pathology report Sterling Durant MD Chest Ultrasound 11/09/17 0000 Signed Impressions: Service Date/Time: Thursday, November 09, 2017 08:24 - CONCLUSION: 1. Small left pleural effusion with insufficient collection for thoracentesis. Therefore, no marking was performed. Victor Hugo Luna MD Head CT 11/04/17 0000 Signed Impressions: Service Date/Time: October 05:49 - CONCLUSION: 1. No acute findings in the brain on this noncontrast study. 2. Right maxillary sinus disease. Ambrose Richardson MD Chest CT 11/04/17 0000 Signed Impressions: Service Date/Time: October 05:46 - CONCLUSION: 1. Consolidation of the entire right lower lobe with nonvisualization of the lower lobe bronchus at its origin suggesting an obstructing central lesion. 2. Segmental consolidation in the right middle lobe and patchy areas of infiltrate in the left lower lobe. 3. No evidence of mediastinal adenopathy. Ambrose Richardson MD Objective Remarks GENERAL: Awake alert oriented talkative and cooperative SKIN: Warm and dry. HEAD: Atraumatic. Normocephalic. EYES: Pupils equal and round. No scleral icterus. No injection or drainage. Extract muscles intact ENT: No nasal bleeding or discharge. Mucous membranes pink and moist. Tongue is midline NECK: Trachea midline. No JVD. Supple CARDIOVASCULAR: Regular rate and rhythm. S1 and S2 no S3 or S4 RESPIRATORY: No accessory muscle use. Clear to auscultation. Breath sounds equal bilaterally. Few scattered rhonchi GASTROINTESTINAL: Abdomen soft, non-tender, nondistended. Hepatic and splenic margins not palpable. MUSCULOSKELETAL: Extremities without clubbing, cyanosis, or edema. No obvious deformities. NEUROLOGICAL: Awake and alert. No obvious cranial nerve deficits. Motor grossly within normal limits. Five out of 5 muscle strength in the arms and legs. Normal speech. PSYCHIATRIC: INAppropriate mood and affect; insight and judgment ABnormal. Procedures 11/10 right Thoracentesis 11/05 Bronchoscopy Medications and IVs Current Medications Sodium Chloride (NS Flush) 2 ml UNSCH PRN IV FLUSH FLUSH AFTER USING IV ACCESS Last administered on 11/04/17at 06:31; Start 11/04/17 at 02:30; Stop 11/04/17 at 19:00; Status DC Piperacillin Sod/ Tazobactam Sod 50 ml @ 100 mls/hr ONCE ONCE IV Last administered on 11/04/17at 05:18; Start 11/04/17 at 03:45; Stop 11/04/17 at 04:14 ; Status DC Vancomycin/Sodium Chloride 200 ml @ 200 mls/hr ONCE ONCE IV Last administered on 11/04/17at 05:18; Start 11/04/17 at 03:45; Stop 11/04/17 at 04:44 ; Status DC Sodium Chloride 1,000 ml @ 999 mls/hr BOLUS ONCE IV Last administered on 11/04at 06:31; Start 11/04/17 at 05:30; Stop 11/04/17 at 06:30; Status DC Sodium Chloride 1,000 ml @ 70 mls/hr [id number] IV Last administered on at 23:22; Start 11/04/17 at 06:49; Stop 11/06/17 at 15:51; Status DC Sodium Chloride (NS Flush) 2 ml UNSCH PRN IV FLUSH FLUSH AFTER USING IV ACCESS ; Start 11/04/17 at 07:00 Sodium Chloride (NS Flush) 2 ml BID IV FLUSH Last administered on 11/13/17at 09: 59; Start 11/04/17 at 09:00 Piperacillin Sod/ Tazobactam Sod 100 ml @ 200 mls/hr Q6H IV Last administered on 11/04/17at 10:31; Start 11/04/17 at 10:00; Stop 11/04/17 at 13:30; Status DC Vancomycin HCl 1000 mg/Sodium Chloride 250 ml @ 250 mls/hr ONCE ONCE IV ; Start 11/04/17 at 16:00; Stop 11/04/17 at 16:00; Status DC Pharmacy Profile Note 0 ml @ 0 mls/hr UNSCH OTHER ; Start 11/04/17 at 07:00; Stop 11/09/17 at 12:08; Status DC Albuterol/ Ipratropium (Duoneb Neb) 1 ampule Q4HR NEB PRN INH SHORTNESS OF BREATH Last administered on 11/06/17at 23:30; Start 11/04/17 at 07:00 Acetaminophen (Tylenol) 650 mg Q4H PRN PO TEMPERATURE > 101 F; Start 11/04/17 at 07:00; Stop 11/04/17 at 08:33; Status DC Ondansetron HCl (Zofran Inj) 4 mg Q6H PRN IV PUSH NAUSEA; Start 11/04/17 at 07: 00 Naloxone HCl (Narcan Inj) 0.4 mg UNSCH X1 PRN IV PUSH RESP DEPRESSION OR HYPOTENSION; Start 11/04/17 at 07:00; Stop 11/07/17 at 06:59; Status DC Vancomycin/Sodium Chloride 200 ml @ 200 mls/hr ONCE ONCE IV Last administered on 11/04/17at 09:46; Start 11/04/17 at 09:00; Stop 11/04/17 at 09:59 ; Status DC Piperacillin Sod/ Tazobactam Sod 50 ml @ 100 mls/hr Q6H IV Last administered on 11/12/17at 10:33; Start 11/04/17 at 16:00; Stop 11/12/17 at 15:26; Status DC Enoxaparin Sodium (Lovenox Inj) 40 mg Q24H SQ Last administered on 11/12/17at 17: 47; Start 11/04/17 at 18:00; Status Future hold Azithromycin 500 mg/Sodium Chloride 250 ml @ 250 mls/hr Q24H IV Last administered on 11/11/17at 21:32; Start 11/04/17 at 20:00; Stop 11/12/17 at 15:26; Status DC Albuterol/ Ipratropium (Duoneb Neb) 1 ampule QID NEB NEB Last administered on 11/08/17at 19:46; Start 11/04/17 at 20:00; Stop 11/08/17 at 19:59; Status DC Acetylcysteine (Mucomyst 10% Neb) 2 ml Q6HR NEB NEB Last administered on at 19:46; Start 11/04/17 at 22:00; Stop 11/08/17 at 21:59; Status DC Methylprednisolone Sodium Succinate (SoluMEDROL INJ) 40 mg Q6HR IV PUSH Last administered on 11/06/17at 12:28; Start 11/05/17 at 00:00; Stop 11/06/17 at 12:42 ; Status DC Albuterol Sulfate (Albuterol Concentrated Neb) 2.5 mg SPACE [employer] AGENT NEB ; Start 11/04 at 19:45; Stop 11/08/17 at 19:44; Status DC Potassium Chloride (KCl Powder) 40 meq ONCE ONCE PO Last administered on at 09:15; Start 11/05/17 at 09:15; Stop 11/05/17 at 09:16; Status DC Albuterol Sulfate (Albuterol Neb) 2.5 mg UNSCH X1 PRN NEB SHORTNESS OF BREATH; Start 11/05/17 at 13:15; Stop 11/06/17 at 13:14; Status DC Fentanyl Citrate (fentaNYL INJ) 100 mcg STK-MED ONCE .ROUTE ; Start 11/05/17 at 13:21; Stop 11/05/17 at 13:22; Status DC Oxycodone/ Acetaminophen (Percocet 5-325 Mg) 1 tab Q4H PRN PO Pain 3 to 10 Last administered on 11/11/17at 13:58; Start 11/05/17 at 16:15; Stop 11/11/17 at 15 :55; Status DC Miscellaneous Information ALL NURSING DEPARTME... UNSCH PRN .XX SEE LABEL COMMENTS; Start 11/05/17 at 13:15; Stop 11/06/17 at 13:14; Status DC Potassium Chloride (KCl Powder) 40 meq ONCE ONCE PO Last administered on at 17:15; Start 11/05/17 at 17:15; Stop 11/05/17 at 17:21; Status DC Lactated Ringer's 1,000 ml @ 999 mls/hr BOLUS ONCE IV Last administered on at 21:30; Start 11/05/17 at 21:15; Stop 11/05/17 at 22:15; Status DC Methylprednisolone Sodium Succinate (SoluMEDROL INJ) 40 mg BID IV PUSH Last administered on 11/09/17 09:08; Start 11/06/17 at 21:00; Stop 11/09/17 at 18:42 ; Status DC Potassium Chloride (KCl Powder) 40 meq ONCE ONCE PO Last administered on 13:00; Start 11/06/17 at 13:00; Stop 11/06/17 at 13:07; Status DC Potassium Chloride (KCl) 20 meq Q12HR PO Last administered on 11/10/17 19:56; Start 11/06/17 at 21:00; Stop 11/10/17 at 23:00; Status DC Folic Acid (Folate) 1 mg DAILY PO Last administered on 11/13/17 09:57; Start at 09:00 Gabapentin (Neurontin) 800 mg TID PO Last administered on 11/13/17 09:57; Start 11/06/17 at 13:00 Levothyroxine Sodium (Synthroid) 50 mcg DAILY@0600 PO Last administered on 06:03; Start 11/07/17 at 06:00 Prednisone (Deltasone) 5 mg DAILY PO Last administered on 11/09/17 09:06; Start 11/07/17 at 09:00; Stop 11/09/17 at 18:42; Status DC Venlafaxine HCl (Effexor Xr) 75 mg DAILY PO Last administered on 11/13/17 09:58 ; Start 11/07/17 at 09:00 Patient Own Medication (Tofacitinib ER (Xeljanz Xr) 11 ... DAILY PO Last administered on 11/13/17 09:58; Start 11/07/17 at 09:00; Status Future hold Zolpidem Tartrate (Ambien) 5 mg HS PRN PO Insomnia Last administered on 22:36; Start 11/06/17 at 13:15 Vancomycin/Sodium Chloride 200 ml @ 200 mls/hr Q12H IV Last administered on 01:56; Start 11/06/17 at 14:00; Stop 11/09/17 at 09:29; Status DC Miscellaneous Information SPECIFIC LAB TO BE GUILLAUME... ONCE ONCE .XX Last administered on 11/07/17at 13:45; Start 11/07/17 at 13:45; Stop 11/07/17 at 13:46 ; Status DC Alprazolam (Xanax) 0.25 mg Q6H PRN PO Anxiety Last administered on 11/07/17at 12 :00; Start 11/06/17 at 17:30; Stop 11/07/17 at 16:06; Status DC Miscellaneous Information SPECIFIC LAB TO BE GUILLAUME... ONCE ONCE .XX ; Start 11/10 at 13:45; Stop 11/10/17 at 13:46; Status Cancel Alprazolam (Xanax) 0.5 mg Q6HR PO Last administered on 11/13/17at 06:04; Start at 18:00 Loperamide HCl (Imodium) 2 mg Q6H PRN PO DIARRHEA Last administered on at 10:33; Start 11/08/17 at 19:00 Metronidazole 100 ml @ 100 mls/hr Q8H IV Last administered on 11/11/17at 11:26; Start 11/08/17 at 20:00; Stop 11/11/17 at 15:22; Status DC Metronidazole (Flagyl) 500 mg Q8HR PO ; Start 11/08/17 at 22:00; Status UNV Prednisone (Deltasone) 5 mg BID PO Last administered on 11/13/17at 09:58; Start 11/09/17 at 21:00 Heparin Sodium (Porcine) (Heparin Inj) 2,000 units NOW ONCE OTHER Last administered on 11/10/17at 18:30; Start 11/10/17 at 18:30; Stop 11/10/17 at 18:31 ; Status DC Oxycodone/ Acetaminophen (Percocet 5-325 Mg) 1 tab ONCE ONCE PO Last administered on 11/11/17at 01:48; Start 11/11/17 at 01:30; Stop 11/11/17 at 01:31; Status DC Acetaminophen (Tylenol) 325 mg ONCE ONCE PO Last administered on 11/11/17at 01: 48; Start 11/11/17 at 01:30; Stop 11/11/17 at 01:31; Status DC Sodium Chloride 500 ml @ 500 mls/hr BOLUS ONCE IV Last administered on at 11:49; Start 11/11/17 at 11:45; Stop 11/11/17 at 12:44; Status DC Non-Formulary Medication 11 mg DAILY PO ; Start 11/11/17 at 15:15; Status Cancel Patient Own Medication (Tofacitinib ER (Xeljanz Xr) 11 ... DAILY PO ; Start 11/11 at 16:00; Stop 11/11/17 at 16:01; Status Cancel Patient Own Medication (Tofacitinib ER (Xeljanz Xr) 11 ... ONCE ONCE PO Last administered on 11/11/17at 17:11; Start 11/11/17 at 16:00; Stop 11/11/17 at 16:01; Status DC Oxycodone/ Acetaminophen (Percocet 5-325 Mg) 1 tab Q6H PRN PO PAIN SCALE 1 TO 5; Start 11/11/17 at 16:00 Oxycodone/ Acetaminophen (Percocet 10-325 Mg) 1 tab Q6H PRN PO PAIN SCALE 6 TO 10 Last administered on 11/13/17at 10:00; Start 11/11/17 at 16:00 Naloxone HCl (Narcan Inj) 0.4 mg UNSCH PRN IV PUSH SEE LABEL COMMENTS; Start at 16:00 Cefuroxime Axetil (Ceftin) 500 mg Q12HR PO Last administered on 11/13/17at 09:58 ; Start 11/12/17 at 21:00 A/P Problem List: (1) Acute respiratory failure ICD Code: J96.00 - Acute respiratory failure Status: Resolved (2) Bilateral pneumonia ICD Code: J18.9 - Pneumonia, unspecified organism Status: Resolved (3) Bronchial obstruction ICD Code: J98.09 - Other diseases of bronchus, not elsewhere classified Status: Resolved (4) Rheumatoid arthritis ICD Code: M06.9 - Rheumatoid arthritis Status: Chronic (5) Immunosuppression ICD Code: D89.9 - Immunosuppression Status: Chronic (6) Encephalopathy ICD Code: G93.40 - Encephalopathy Status: Resolved Assessment and Plan Assessment and Plan Bilateral pneumonia; likely aspiration pneumonitis with Escherichia coli with a history of being immunocompromised due to her chronic medications for rheumatoid arthritis Continue Zosyn and Azithromycin coverage for possible aspiration from Escherichia coli from bronchoscopy washings cultures Oxygen walk test demonstrated desaturation to 89% with light activity previously on 11/08; repeat another walk test 11/11 showed 96% room air Status post right Thoracentesis 11/[address] Bentley- await final cultures and cytology ID consult appreciated and continue with Zithromax and Zosyn, ID discontinue Flagyl at this point. Will transition over to cefuroxime per ID Yeast on chronic washings Likely a contaminant per infectious disease Right-sided bronchial obstruction Pulmonology following Status post bronchoscopy 11/05/17 Weaned off oxygen as tolerated Anxiety/depression PRN xanax Rheumatoid arthritis, Lupus, Avascular necrosis Immunocompromise related to treatment Due to her continued worsening pain, ID has felt she can restart her immune modulating medications; I recommend still holding Methotrexate. Currently on low-dose prednisone DVT prophylaxisSCDs, Lovenox Discharge Planning Discharge in the morning if patient remains afebrile with follow-up with pulmonary and primary care physician. Discharge Planning Can be discharged to home today Problem Qualifiers (1) Bilateral pneumonia: Bharat Olea DO Nov 13, 2017 11:38
[2017-11-13] MEDS ORDERED: AMBI5TAB PO (11:41)
[2017-11-13] MEDS ORDERED: Albuterol-Ipratropium Neb INH (11:41)
[2017-11-13] MEDS ORDERED: NEBULIZER1 MI1 (11:41)
[2017-11-13] MEDS ORDERED: CEFU1TAB20 PO (11:41)
--- NOTE | 2017-11-13 11:42 | HHI.DS ---
Discharge Summary Admission Date Nov 04, 2017 at 06:45 Discharge Date: Nov 13, 2017 Admitting Diagnosis Pneumonia, R lower Bronchus Obstruction (1) Acute respiratory failure ICD Code: J96.00 - Acute respiratory failure Diagnosis: Principal Status: Resolved (2) Bilateral pneumonia ICD Code: J18.9 - Pneumonia, unspecified organism Diagnosis: Principal Status: Resolved (3) Bronchial obstruction ICD Code: J98.09 - Other diseases of bronchus, not elsewhere classified Diagnosis: Secondary Status: Resolved (4) Rheumatoid arthritis ICD Code: M06.9 - Rheumatoid arthritis Diagnosis: Secondary Status: Chronic (5) Immunosuppression ICD Code: D89.9 - Immunosuppression Diagnosis: Secondary Status: Chronic (6) Encephalopathy ICD Code: G93.40 - Encephalopathy Diagnosis: Secondary Status: Resolved Procedures 11/10 right Thoracentesis 11/05 Bronchoscopy Brief History - From Admission Mrs. Eugene is a 62-year-old female. At baseline she has rheumatoid arthritis and lupus and takes immunosuppressant. Recently she had been dealing with influenza and she says she's been ill from this and spending a lot of time in bed. She feels she's been in bed about 3 days but has difficulty recollecting the past few days. Her boyfriend called EMS and brought her to the emergency Department secondary to the degree of lethargy. Patient is on opioids that she denies ever using this other than what is prescribed and she says recently she has not been taking her opioids. Urine drug screen shows no evidence of opioids in her system. Etiology for her lethargy could be related to infection. Imaging shows evidence of bilateral pneumonia with possible pulmonary obstruction on the right lower lobe. She's been started on Zosyn. She may also had a seizure this could alter her mental status. However, currently no seizure activity witnessed. CT of brain is negative for any evidence of bleed or CVA. An ABG is pending. CBC/BMP: 11/13/17 1032 11/13/17 1032 Significant Findings Laboratory Tests Test 11/10/17 17:30 11/11/17 14:04 11/13/17 10:32 Pleural Fluid WBC 76 /MM3 (0-10) Pleural Fluid RBC 48 /MM3 (0-0) White Blood Count 13.1 TH/MM3 (4.0-11.0) 11.7 TH/MM3 (4.0-11.0) Red Blood Count 2.97 MIL/MM3 (4.00-5.30) 3.08 MIL/MM3 (4.00-5.30) Hemoglobin 10.4 GM/DL (11.6-15.3) 10.8 GM/DL (11.6-15.3) Hematocrit 30.9 % (35.0-46.0) 32.2 % (35.0-46.0) Mean Corpuscular Volume 104.0 FL (80.0-100.0) 104.4 FL (80.0-100.0) Mean Corpuscular Hemoglobin 34.9 PG (27.0-34.0) 35.0 PG (27.0-34.0) Mean Platelet Volume 6.9 FL (7.0-11.0) 6.9 FL (7.0-11.0) Neutrophils (%) (Auto) 86.5 % (16.0-70.0) 73.7 % (16.0-70.0) Lymphocytes (%) (Auto) 4.7 % (9.0-44.0) Monocytes (%) (Auto) 8.5 % (0.0-8.0) 8.9 % (0.0-8.0) Neutrophils # (Auto) 11.3 TH/MM3 (1.8-7.7) 8.6 TH/MM3 (1.8-7.7) Lymphocytes # (Auto) 0.6 TH/MM3 (1.0-4.8) Monocytes # (Auto) 1.1 TH/MM3 (0-0.9) 1.0 TH/MM3 (0-0.9) Neutrophils % (Manual) 89 % (16-70) Lymphocytes % 3 % (9-44) Neutrophils # (Manual) 12.3 TH/MM3 (1.8-7.7) Random Glucose 121 MG/DL (74-106) Total Protein 5.1 GM/DL (6.4-8.2) 5.7 GM/DL (6.4-8.2) Calcium Level 6.8 MG/DL (8.5-10.1) 8.1 MG/DL (8.5-10.1) Protein Corrected Calcium 7.8 MG/DL (8.5-10.1) Platelet Count 488 TH/MM3 (150-450) Albumin 2.5 GM/DL (3.4-5.0) Total Bilirubin 0.1 MG/DL (0.2-1.0) Imaging Last Impressions Chest X-Ray 11/10/17 0000 Signed Impressions: Service Date/Time: Friday, November 10, 2017 19:01 - CONCLUSION: 1. Small left pleural effusion. 2. Bibasilar patchiness consistent with probable atelectasis and/or pneumonia. Gualberto Tate MD Modified Barium Swallow 11/09/17 0000 Signed Impressions: Service Date/Time: Thursday, November 09, 2017 00:00 - CONCLUSION: Negative examination. Please see space pathology report Sterling Durant MD Chest Ultrasound 11/09/17 0000 Signed Impressions: Service Date/Time: Thursday, November 09, 2017 08:24 - CONCLUSION: 1. Small left pleural effusion with insufficient collection for thoracentesis. Therefore, no marking was performed. Victor Hugo Luna MD Head CT 11/04/17 0000 Signed Impressions: Service Date/Time: October 05:49 - CONCLUSION: 1. No acute findings in the brain on this noncontrast study. 2. Right maxillary sinus disease. Ambrose Richardson MD Chest CT 11/04/17 0000 Signed Impressions: Service Date/Time: October 05:46 - CONCLUSION: 1. Consolidation of the entire right lower lobe with nonvisualization of the lower lobe bronchus at its origin suggesting an obstructing central lesion. 2. Segmental consolidation in the right middle lobe and patchy areas of infiltrate in the left lower lobe. 3. No evidence of mediastinal adenopathy. Ambrose Richardson MD PE at Discharge GENERAL: Awake alert oriented talkative and cooperative SKIN: Warm and dry. HEAD: Atraumatic. Normocephalic. EYES: Pupils equal and round. No scleral icterus. No injection or drainage. Extract muscles intact ENT: No nasal bleeding or discharge. Mucous membranes pink and moist. Tongue is midline NECK: Trachea midline. No JVD. Supple CARDIOVASCULAR: Regular rate and rhythm. S1 and S2 no S3 or S4 RESPIRATORY: No accessory muscle use. Clear to auscultation. Breath sounds equal bilaterally. Few scattered rhonchi GASTROINTESTINAL: Abdomen soft, non-tender, nondistended. Hepatic and splenic margins not palpable. MUSCULOSKELETAL: Extremities without clubbing, cyanosis, or edema. No obvious deformities. NEUROLOGICAL: Awake and alert. No obvious cranial nerve deficits. Motor grossly within normal limits. Five out of 5 muscle strength in the arms and legs. Normal speech. PSYCHIATRIC: INAppropriate mood and affect; insight and judgment ABnormal. Hospital Course 62-year-old female was admitted for acute respiratory failure secondary to aspiration pneumonia with risk factors of underlying immunosuppression and compromise due to chronic renal modular and suppressive medication she takes for her history of rheumatoid arthritis. She was seen by pulmonary service and a bronchoscopy was obtained which cultures revealed Escherichia coli. She was placed on IV Zithromax and Zosyn with Flagyl. Her oxygen support was weaned during the hospitalization. Right Thoracentesis was also performed for her right pleural effusion to improve her respiratory status. Infectious disease was consulted who recommended IV Zosyn and continuation IV Zithromax. Infectious disease felt it was safe to continue with Xeljanz medication due to her increased complaints of arthritic pain. She was counseled not to restart her methotrexate until she completes her course of antibiotics. At this time, if she remains 48 hours afebrile from adjustment of IV antibiotics; she will be transitioned to oral cefuroxime for discharge to home with outpatient follow-up with pulmonary, Dr. Riddle. Pt Condition on Discharge: Good Discharge Disposition: Discharge Home Discharge Time: <= 30 minutes Discharge Instructions DIET: Follow Instructions for: As Tolerated, No Restrictions Speech Therapy-Diet Recommends: Regular Activities you can perform: Regular-No Restrictions Follow up Referrals: PCP Follow-up Pulmonology - 2 Weeks with Vishnu Yee MD New Medications: Nebulizer (Nebulizer) 1 Mis Mis EA .XX DIRECTED for Breathing Treatment, #1 0 Refills Alprazolam (Xanax) 0.5 Mg Tab 0.5 MG PO Q8HR PRN for ANXIETY, #15 TAB Cefuroxime (Cefuroxime) 500 Mg Tab 500 MG PO Q12HR for Infection, #20 TAB Zolpidem (Ambien) 5 Mg Tab 5 MG PO HS PRN for Insomnia, #30 TAB [Albuterol-Ipratropium Neb] () 1 AMPULE NEBU 1 AMPULE INH Q4HR NEB PRN for SHORTNESS OF BREATH, #180 AMPULE Continued Medications: Folic Acid (Folic Acid) 0.4 Mg Tab 1 MG PO DAILY for Nutritional Supplement, TAB 0 Refills Gabapentin (Gabapentin) 800 Mg Tab 800 MG PO TID, #90 TAB 0 Refills Levothyroxine (Levothyroxine) 50 Mcg Tab 50 MCG PO DAILY for Thyroid, #30 TAB 0 Refills Oxycodone-Acetaminophen (Oxycodone-Acetaminophen) 10-325 mg Tab 1 TAB PO Q6H PRN for PAIN, #60 TAB 0 Refills Prednisone (Prednisone) 5 Mg Tab 5 MG PO DAILY, TAB 0 Refills Tofacitinib ER (Xeljanz Xr) 11 Mg Tab 11 MG PO DAILY for Arthritis, #30 TAB 0 Refills Venlafaxine ER 24 HR (Venlafaxine ER 24 HR) 75 Mg Tab 75 MG PO DAILY, #30 TAB 0 Refills Discontinued Medications: Methotrexate (Antirheumatic) (Rasuvo) 25 Mg/0.5 Ml Inj WEEKLY Bharat Olea DO Nov 13, 2017 11:42
[2017-11-13 11:44] LABS: BANDS 6 % (0-6); LYMPHOCYTES 17 % (9-44); METAMYELOCYTES 6 % (0-1); MONOCYTES 10 % (0-8); NEUTROPHIL # MANUAL DIFF 8.5 TH/MM3 (1.8-7.7); POLYS (SEG NEUTROPHILS) 61 % (16-70)
[2017-11-13 12:00] VITALS: BP 105/70; PULSE 88; RESP 18; TEMP 98.4; O2SAT 95
[2017-11-13 12:23] LABS: HEMOGLOBIN A1C 5.4 % (4.3-6.0)
== END 2017-11-13 15:55 | disposition home or self-care (01) | DRG 853 ==
LOC: NEPE 02:10 → NEDA 06:45 → N07B 15:22
PROVIDERS: ADMIT Hospitalist; ATTEND Hospitalist
PROC: 0BBF8ZX Excision of Right Lower Lung Lobe, Via Natural or Artificial Opening Endoscopic, Diagnostic (ICD-10-PCS; principal; 2017-11-05)
PROC: 0BD68ZX Extraction of Right Lower Lobe Bronchus, Via Natural or Artificial Opening Endoscopic, Diagnostic (ICD-10-PCS; 2017-11-05)
PROC: 0B9B8ZX Drainage of Left Lower Lobe Bronchus, Via Natural or Artificial Opening Endoscopic, Diagnostic (ICD-10-PCS; 2017-11-05)
PROC: 0B968ZX Drainage of Right Lower Lobe Bronchus, Via Natural or Artificial Opening Endoscopic, Diagnostic (ICD-10-PCS; 2017-11-05)
PROC: 0BCB8ZZ Extirpation of Matter from Left Lower Lobe Bronchus, Via Natural or Artificial Opening Endoscopic (ICD-10-PCS; 2017-11-05)
PROC: 0BC48ZZ Extirpation of Matter from Right Upper Lobe Bronchus, Via Natural or Artificial Opening Endoscopic (ICD-10-PCS; 2017-11-05)
PROC: 0BC68ZZ Extirpation of Matter from Right Lower Lobe Bronchus, Via Natural or Artificial Opening Endoscopic (ICD-10-PCS; 2017-11-05)
PROC: 0B948ZX Drainage of Right Upper Lobe Bronchus, Via Natural or Artificial Opening Endoscopic, Diagnostic (ICD-10-PCS; 2017-11-05)
PROC: 0W993ZZ Drainage of Right Pleural Cavity, Percutaneous Approach (ICD-10-PCS; 2017-11-10)
DX: A41.9 Sepsis, unspecified organism (principal); J96.00 Acute respiratory failure, unspecified whether with hypoxia or hypercapnia; J69.0 Pneumonitis due to inhalation of food and vomit; G93.40 Encephalopathy, unspecified; J90 Pleural effusion, not elsewhere classified; J98.11 Atelectasis; D89.9 Disorder involving the immune mechanism, unspecified; M32.9 Systemic lupus erythematosus, unspecified; J98.09 Other diseases of bronchus, not elsewhere classified; M06.9 Rheumatoid arthritis, unspecified; E03.9 Hypothyroidism, unspecified; D64.9 Anemia, unspecified; R56.9 Unspecified convulsions; M10.9 Gout, unspecified; M81.0 Age-related osteoporosis without current pathological fracture; F32.9 Major depressive disorder, single episode, unspecified; F41.9 Anxiety disorder, unspecified; Z72.0 Tobacco use; Z86.14 Personal history of Methicillin resistant Staphylococcus aureus infection; Z88.2 Allergy status to sulfonamides; Z88.6 Allergy status to analgesic agent; Z88.5 Allergy status to narcotic agent; Z91.030 Bee allergy status; Z96.611 Presence of right artificial shoulder joint; Z96.612 Presence of left artificial shoulder joint
CPT/HCPCS: 31623; 36600; 70450; 71045; 71046; 71250; 74230; 76604; 80048; 80053; 80202; 80307; 81001; 82024; 82140; 82150; 82533; 82550; 82552; 82805; 82945; 83036; 83605; 83615; 83735; 83986; 84100; 84132; 84155; 84157; 84436; 84439; 84443; 84481; 84484; 85007; 85025; 85027; 85610; 85730; 87015; 87040; 87070; 87071; 87077; 87086; 87102; 87116; 87186; 87205; 87206; 88112; 88305; 88312; 89051; 93005; 94150; 94618; 94640; 94664; 96365; 96368; J0456; J1644; J1650; J2543; J2920; J3010; J3370; J7030; J7040; J7050; J7120; J7512; J7608